=== PATIENT | female | born 1960 | race Two or more races ===

== ENCOUNTER 2020-04-07 13:43 | Inpatient (IN) ==
[2020-04-07] MEDS ORDERED: NS 1000 ML 1,000 ML ONE ×2 (14:02→16:18)
[2020-04-07 14:11] LABS: ABG BASE EXCESS -0.5 mmol/L (-2.0-2.0); ABG HCO3 22.9 mmol/L (22-26)
[2020-04-07 14:12] LABS: ABG ALLEN TEST POS
--- NOTE | 2020-04-07 14:25 | DR.FEVERAD ---
HPI Time seen Time Seen by Provider: 04/07/20 14:02 COVID-19 Has patient experienced Coronavirus symptoms: Yes Coronavirus symptoms experienced: Fever and Shortness of Breath Nurses notes reviewed Nurses Notes Review: Yes Source History Provided: Patient and Significant Other Mode of Arrival Mode of Arrival: Ambulatory Timing Came on: Suddenly Duration How lon Duration: Days Severity Fever Severity/Quality: subjective Context Recent: denies Treated Infection, Antibiotic and Contact exposure to Symptoms: Fever, Chills, Cough, SOB, Nasal symptoms and Sore throat; denies Dysuria, Frequency and Urgency History of: None Modifying factors Modifying factors: Nothing Associated signs and symptoms Associated signs and symptoms: Weakness and Myalgia; denies Lethargy, Abdominal pain, Nausea and Vomiting PMH PMH Past Medical History: No Past Surgical History: No Family History History of Family Medical Conditions: No Social History Does patient currently use any type of tobacco product: No Have you used tobacco products in the last 12 months: No Alcohol Use: None Do you use any recreational Drugs:: No Lives With: Spouse Travel Risk Has patient experienced Coronavirus symptoms: Yes Coronavirus symptoms experienced: Fever and Shortness of Breath ROS Review of Systems Constitutional: Chills, Fever, Malaise, Weakness, Fatigue and Loss of Appetite Eyes: No Symptoms Reported ENTM: No Symptoms Reported Respiratoy: Non-Productive Cough and Short of Breath; negative Productive Cough and Hemoptysis Cardiovascular: No Symptoms Reported Gastrointestinal/Abdominal: No Symptoms Reported Genitourinary: No Symptoms Reported Neurological: No Symptoms Reported Musculoskeletal: No Symptoms Reported Integumentary: No Symptoms Reported Hematologic/Lymphatic: No Symptoms Reported Endocrine: No Symptoms Reported Psychiatric: No Symptoms Reported All Other Systems: Reviewed and Negative PE Vital Signs Vitals: Temperature 98.0 F Pulse Rate 66 Respiratory Rate 22 Blood Pressure 151/71 O2 Sat by Pulse Oximetry 98 General Limitations: No Limitations General Appearance: Alert and Other (generalized weakness, hpyoxic, Pulse ox 79% on RA, mild respiratory distress ) Head Head Exam: Normal Inspection Eyes Eye exam: Normal Appearance ENT ENT Exam: Normal Exam Neck Neck Exam: Normal Inspection Respiratory Respiratory Exam: Respiratory Distress; negative Accessory Muscle Use, Chest Wall Tenderness, Prolonged Expiratory Phase and Stridor Respiratory Exam: Bilateral: Rhonchi Cardiovascular Cardiovascular Exam: Regular Rate and Normal Rhythm Abdominal Exam Abdominal Exam: Normal Inspection, Normal Bowel Sounds and Soft Extremities Extremities Exam: Normal Inspection Back Back Exam: Normal Inspection Neurologic Neurological Exam: Alert and Oriented X3 Psychiatric Psychiatric Exam: Normal Affect and Normal Mood Skin Skin Exam: Warm, Dry, Intact and Normal Color MDM Differential Diagnosis Differential Diagnosis: Dehydration, Hypoxemia, Influenza, Pulmonary embolus, Pneumonia, UTI, Sepsis and Viral syndrome COURSE Treatment Treatment: 60 yo f w/ no pmh presents w/ febrile illness x 4 days. Pulse ox 79% on ra on arrival, mild RD. placed on supplemental o2 w/ improvement to 90's. ABG with significant hypoxia c/w hypoxemic respiratory failure. EKG w/ evidence of multifocal pna. Covid 19 swab +. Lymphopenia on cbc. Mild francesco. Elevated ldh. 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 ROR Labs Reviewed Laboratory Results Reviewed?: Yes Result Diagrams: 04/07/20 14:10 04/07/20 14:10 Laboratory: WBC 6.9 X10^3/uL (3.6-10.0) 04/07/20 14:10 RBC 3.78 X10^6/uL (3.5-5.4) 04/07/20 14:10 Hgb 10.9 g/dL (12.0-16.0) L 04/07/20 14:10 Hct 31.6 % (36.0-47.0) L 04/07/20 14:10 MCV 83.5 fL (80.0-100.0) 04/07/20 14:10 MCH 28.9 pg (27.0-34.0) 04/07/20 14:10 MCHC 34.6 g/dL (33.0-35.0) 04/07/20 14:10 RDW 14.6 % (11.6-16.5) 04/07/20 14:10 Plt Count 283 X10^3/uL (150.0-450.0) 04/07/20 14:10 MPV 8.4 fL (7.4-11.0) 04/07/20 14:10 Neut % (Auto) 79.1 % (42.0-75.0) H 04/07/20 14:10 Lymph % (Auto) 16.0 % (21.0-51.0) L 04/07/20 14:10 [place] % (Auto) 4.0 % (0.0-13.0) 04/07/20 14:10 Eos % (Auto) 0.6 % (0.9-2.9) L 04/07/20 14:10 Baso % (Auto) 0.3 % (0.2-1.0) 04/07/20 14:10 Neut # (Auto) 5.4 x10^3/uL (2.2-4.8) H 04/07/20 14:10 Lymph # (Auto) 1.1 X10^3/uL (1.3-2.9) L 04/07/20 14:10 [place] # (Auto) 0.3 x10^3/uL (0.3-0.8) 04/07/20 14:10 Eos # (Auto) 0.0 x10^3/uL (0.0-0.2) 04/07/20 14:10 Baso # (Auto) 0.0 X10^3/uL (0.0-0.1) 04/07/20 14:10 Absolute Nucleated RBC 0.1 /100WBC 04/07/20 14:10 Sample Site Rrad 04/07/20 14:02 ABG pH 7.450 (7.35-7.45) 04/07/20 14:02 ABG pCO2 33.0 mmHg (35.0-45.0) L 04/07/20 14:02 ABG pO2 48.0 mmHg (80.0-100.0) L* 04/07/20 14:02 ABG HCO3 22.9 mmol/L (22-26) 04/07/20 14:02 ABG O2 Saturation 85.0 % (90-100) L 04/07/20 14:02 ABG Base Excess -0.5 mmol/L (-2.0-2.0) 04/07/20 14:02 Riccardo Test Pos 04/07/20 14:02 A-a Gradient 60.0 mmHg 04/07/20 14:02 FiO2 21.0 04/07/20 14:02 Blood Gas Comments Pt liz well elj 04/07/20 14:02 Sodium 136 mmol/L (136-145) 04/07/20 14:10 Corrected Sodium TNP 04/07/20 14:10 Potassium 4.6 mmol/L (3.5-5.1) 04/07/20 14:10 Chloride 103 mmol/L (98-107) 04/07/20 14:10 Carbon Dioxide 24.7 mmol/L (21-32) 04/07/20 14:10 BUN 29 mg/dL (7-18) H 04/07/20 14:10 Creatinine 1.37 mg/dL (0.55-1.02) H 04/07/20 14:10 Est GFR (MDRD) Af Amer 50 (>60) L 04/07/20 14:10 Est GFR (MDRD) Non-Af 42 (>60) L 04/07/20 14:10 Glucose 75 mg/dL (65-99) 04/07/20 14:10 Lactic Acid 0.8 mmol/L (0.4-2.0) 04/07/20 14:10 Calcium 7.8 mg/dL (8.5-10.1) L 04/07/20 14:10 Corrected Calcium 8.7 mg/dL (8.5-10.1) 04/07/20 14:10 Total Bilirubin 0.30 mg/dL (0.2-1.0) 04/07/20 14:10 AST 127 Units/L (15-37) H 04/07/20 14:10 ALT 69 Units/L (12-78) 04/07/20 14:10 Alkaline Phosphatase 170 Units/L (46-116) H 04/07/20 14:10 Lactate Dehydrogenase 662 Units/L (81-234) H 04/07/20 14:10 Troponin I < 0.02 ng/mL (0-1.5) 04/07/20 14:10 Total Protein 7.2 g/dL (6.4-8.2) 04/07/20 14:10 Albumin 2.9 g/dL (3.4-5.0) L 04/07/20 14:10 Globulin 4.3 g/dL (2.5-4.5) 04/07/20 14:10 Albumin/Globulin Ratio 0.7 Ratio (1.1-2.1) L 04/07/20 14:10 HCG, Qual Negative <10 mIU/mL 04/07/20 14:10 SARS-CoV-2 (PCR) Positive (NEGATIVE) A 05/23/20 14:14 Miscellaneous Test Cancelled 04/07/20 14:14 XRAY XRAY Interpreted by: Radiologist X-ray Results: cxr w/ multifocal infiltrates EKG Rate: 66 [place]: Normal Rhythm: NSR Block: None Hypertrophy: None ST: Normal Opioid Opioid Risk Tool Total: 0 Total Score Risk Category: Low Risk Copyright: [facility] predicting aberrant behaviors Diagnosis Discharge Problem: COVID-19, Acute hypoxemic respiratory failure due to COVID-19, FRANCESCO (acute kidney injury) Instructions Forms: Excuse From Work Patient Portal Social Distancing
[2020-04-07 14:27] VITALS: BMI 22.9
[2020-04-07] MEDS: NS 1000 ML 1,000 ML IV SCH ×2 (14:29→16:23)
[2020-04-07 14:31] LABS: BASOPHILS % (AUTO) 0.3 % (0.2-1.0); EOSINOPHILS % (AUTO) 0.6 % (0.9-2.9); HEMATOCRIT 31.6 % (36.0-47.0); HEMOGLOBIN 10.9 g/dL (12.0-16.0); LYMPHOCYTES # (AUTO) 1.1 X10^3/uL (1.3-2.9); MEAN CORPUSCULAR HEMOGLOBIN 28.9 pg (27.0-34.0); MEAN CORPUSCULAR HGB CONC 34.6 g/dL (33.0-35.0); MEAN CORPUSCULAR VOLUME 83.5 fL (80.0-100.0); MEAN PLATELET VOLUME 8.4 fL (7.4-11.0); MONOCYTES # (AUTO) 0.3 x10^3/uL (0.3-0.8); NEUTROPHILS # (AUTO) 5.4 x10^3/uL (2.2-4.8); NEUTROPHILS % (AUTO) 79.1 % (42.0-75.0); PLATELET COUNT 283 X10^3/uL (150.0-450.0); RED BLOOD COUNT 3.78 X10^6/uL (3.5-5.4); RED CELL DISTRIBUTION WIDTH 14.6 % (11.6-16.5); WHITE BLOOD COUNT 6.9 X10^3/uL (3.6-10.0)
--- NOTE | 2020-04-07 14:42 | RAD ---
HISTORYShortness of breath, fever, nausea, vomiting, diarrhea.STUDYCHEST, 1 VIEWCOMPARISONNone.FINDINGSThe trachea is midline. The cardiac silhouette is unremarkable. There is patchy airspace opacity in both lungs, mostly in the perihilar regions bilaterally. There is no evidence of consolidation, significant effusion or pneumothorax. The bony thorax is unremarkable.IMPRESSION1. Patchy airspace opacities in both lungs as described, mostly in a perihilar distribution. Clinical correlation for multifocal pneumonia is recommended.Electronically signed by: AMIRA ALCALA (April 07, 2020 14:40:15)
[2020-04-07 14:44] LABS: SERUM PREGNANCY TEST, QUAL NEGATIVE <10 mIU/mL
[2020-04-07 14:50] LABS: LACTIC ACID 0.8 mmol/L (0.4-2.0)
[2020-04-07 14:51] LABS: ALANINE AMINOTRANSFERASE 69 Units/L (12-78); ALBUMIN 2.9 g/dL (3.4-5.0); ALKALINE PHOSPHATASE 170 Units/L (46-116); ASPARTATE AMINO TRANSFERASE 127 Units/L (15-37); BLOOD UREA NITROGEN 29 mg/dL (7-18); CALCIUM 7.8 mg/dL (8.5-10.1); CARBON DIOXIDE 24.7 mmol/L (21-32); CHLORIDE 103 mmol/L (98-107); COR CA(FOR HYPOALB) 8.7 mg/dL (8.5-10.1); CREATININE 1.37 mg/dL (0.55-1.02); LACTATE DEHYDROGENASE 662 Units/L (81-234); SODIUM 136 mmol/L (136-145); TOTAL PROTEIN 7.2 g/dL (6.4-8.2); TROPONIN I < 0.02 ng/mL (0-1.5); eGFR NON BLACK RACES 42 (>60)
[2020-04-07] MEDS ORDERED: ROCEPHIN VIAL 1 GRAM 1 G in NS 100 ML IV + SPIKE MINIBAG* 100 ML IV ONE (15:54)
[2020-04-07] MEDS ORDERED: NS 250 ML IV 250 ML IV ONE (16:13)
[2020-04-07] MEDS ORDERED: ZITHROMAX INJ 500 MG VIAL IV ONE (16:13)
[2020-04-07 16:17] LABS: BILIRUBIN,URINE NEGATIVE (NEGATIVE); BLOOD/HEMOGLOBIN,URINE 1+ (NEGATIVE); GLUCOSE, URINE NEGATIVE (NEGATIVE); KETONES,URINE NEGATIVE (NEGATIVE); LEUKOCYTE ESTERASE ,URINE 1+ (NEGATIVE); NITRITES,URINE NEGATIVE (NEGATIVE); PROTEIN,URINE 2+ (NEGATIVE); UROBILINOGEN,URINE NORMAL (NORMAL)
[2020-04-07] MEDS: ZITHROMAX INJ 500 MG VIAL 500 MG in NS 250 ML IV 250 ML IV SCH (16:22)
[2020-04-07 16:25] LABS: APPEARANCE,URINE CLEAR (CLEAR); BACTERIA,URINE NEGATIVE /HPF (NEGATIVE); COLOR,URINE YELLOW (YELLOW); RBC,URINE 0-2 /HPF (0-3); SQUAMOUS EPITHELIAL CELL,UR RARE /HPF (NEGATIVE)
[2020-04-07] MEDS: SOLU-Medrol 125 MG VIAL IVP SCH (22:48)
[2020-04-08] MEDS: SOLU-Medrol 125 MG VIAL IVP SCH ×3 (05:49→22:03)
[2020-04-08 06:00] LABS: ABG BASE EXCESS -1.1 mmol/L (-2.0-2.0); ABG HCO3 22.4 mmol/L (22-26)
[2020-04-08 06:09] LABS: BASOPHILS % (AUTO) 0.4 % (0.2-1.0); EOSINOPHILS # (AUTO) 0.1 x10^3/uL (0.0-0.2); EOSINOPHILS % (AUTO) 0.9 % (0.9-2.9); HEMATOCRIT 30.3 % (36.0-47.0); HEMOGLOBIN 10.5 g/dL (12.0-16.0); LYMPHOCYTES # (AUTO) 0.9 X10^3/uL (1.3-2.9); LYMPHOCYTES % (AUTO) 10.4 % (21.0-51.0); MEAN CORPUSCULAR HEMOGLOBIN 29.1 pg (27.0-34.0); MEAN CORPUSCULAR HGB CONC 34.7 g/dL (33.0-35.0); MEAN CORPUSCULAR VOLUME 83.7 fL (80.0-100.0); MEAN PLATELET VOLUME 8.2 fL (7.4-11.0); MONOCYTES # (AUTO) 0.3 x10^3/uL (0.3-0.8); MONOCYTES % (AUTO) 3.1 % (0.0-13.0); NEUTROPHILS # (AUTO) 7.1 x10^3/uL (2.2-4.8); NEUTROPHILS % (AUTO) 85.2 % (42.0-75.0); PLATELET COUNT 313 X10^3/uL (150.0-450.0); RED BLOOD COUNT 3.62 X10^6/uL (3.5-5.4); RED CELL DISTRIBUTION WIDTH 14.2 % (11.6-16.5); WHITE BLOOD COUNT 8.3 X10^3/uL (3.6-10.0)
[2020-04-08 06:22] LABS: ALANINE AMINOTRANSFERASE 59 Units/L (12-78); ALBUMIN 2.3 g/dL (3.4-5.0); ALKALINE PHOSPHATASE 155 Units/L (46-116); ASPARTATE AMINO TRANSFERASE 109 Units/L (15-37); BLOOD UREA NITROGEN 17 mg/dL (7-18); CALCIUM 7.4 mg/dL (8.5-10.1); CARBON DIOXIDE 22.3 mmol/L (21-32); CHLORIDE 107 mmol/L (98-107); COR CA(FOR HYPOALB) 8.8 mg/dL (8.5-10.1); CREATININE 1.04 mg/dL (0.55-1.02); SODIUM 140 mmol/L (136-145); TOTAL PROTEIN 6.5 g/dL (6.4-8.2); eGFR NON BLACK RACES 57 (>60)
--- NOTE | 2020-04-08 06:32 | RAD ---
HISTORYpneumoniaSTUDYCHEST, 1 VIEWCOMPARISONMay 2019TECHNIQUEPortable chest x-rayFINDINGSProgressive multifocal bilateral alveolar consolidation and intervening ground-glass attenuation of the lung parenchyma is observed. The heart size remains stable and the pleural spaces remain clear. There is no free air or pneumothorax identified.IMPRESSIONProgressive airspace opacification associated with multifocal bronchopneumonia pattern, which may be due to viral or atypical organism.Electronically signed by: CAMERON DEGROOT (April 08, 2020 06:30:52)
[2020-04-08] MEDS ORDERED: LOVENOX INJ 30 MG SYR SC SCH (09:00)
[2020-04-08] MEDS ORDERED: LOVENOX INJ 40 MG SYR SC SCH (09:00)
--- NOTE | 2020-04-08 11:21 | DR.H&P ---
H&P History & Physical for Day of: H&P Date: 04/08/20 Chief Complaint Chief Complaint: Shortness of breath Allergies Allergies Allergy/AdvReac Type Severity Reaction Status Date / Time No Known Drug Allergies Allergy Verified 04/07/20 14:00 History of Present Illness History of Present Illness: Pt is a 60 yo f w/ no pmhx admitted for COVID-19 pneumonia and Acute respiratory failure. She reports symptoms that started 4-5 days prior to admission, w/ fever, chills, headache, cough, wheezing, shortness of breath, nausea, and abdominal pain. In ED, her pulse ox 79% on room air and pt in moderate respiratory distress. She was placed on supplemental o2 w/ improvement to 90's. ABG with significant hypoxia c/w hypoxemic respiratory failure. CXR w/ evidence of multifocal pneumonia. Covid-19 positive on 04/07/20. Labs/imaging this morning: Wbc 8.3, Hgb 10.5, Plt 313, Na 140, K 4.2, HCO3 22.3, Cr 1.37>1.04, Gluc 108, CRP 82. AB.4/33/52/22.4/88% on 6L nc FiO2 44% CXR: Progressive airspace opacification associated with multifocal bronchopneumonia pattern, which may be due to viral or atypical organism. Will change patient to high flow w/ FiO2 80%, repeat ABG in 2 hours. Discussed w/ pt and possibility of intubation and mechanical ventilation if necessary with patient and risk, benefits involved. Pt verbalized understanding and desires interventio n if necessary. Continue IV Solumedrol q8h, Albuterol inh prn. Continue to closely monitor patient and follow up labs. Social History Does patient currently use any type of tobacco product: No Have you used tobacco products in the last 12 months: No Does any household member use tobacco: No Alcohol Use: None Drug Use: None Medications Home Medications: No Known Drug Allergies Allergy (Verified 04/07/20 14:00) CONTINUE taking the following medications NK 04/07/20 [History] Labs Result Diagrams: 04/08/20 05:01 04/08/20 05:01 Labs: Laboratory WBC 8.3 X10^3/uL (3.6-10.0) 04/08/20 05:01 RBC 3.62 X10^6/uL (3.5-5.4) 04/08/20 05:01 Hgb 10.5 g/dL (12.0-16.0) L 04/08/20 05:01 Hct 30.3 % (36.0-47.0) L 04/08/20 05:01 MCV 83.7 fL (80.0-100.0) 04/08/20 05:01 MCH 29.1 pg (27.0-34.0) 04/08/20 05:01 MCHC 34.7 g/dL (33.0-35.0) 04/08/20 05:01 RDW 14.2 % (11.6-16.5) 04/08/20 05:01 Plt Count 313 X10^3/uL (150.0-450.0) 04/08/20 05:01 MPV 8.2 fL (7.4-11.0) 04/08/20 05:01 Neut % (Auto) 85.2 % (42.0-75.0) H 04/08/20 05:01 Lymph % (Auto) 10.4 % (21.0-51.0) L 04/08/20 05:01 [place] % (Auto) 3.1 % (0.0-13.0) 04/08/20 05:01 Eos % (Auto) 0.9 % (0.9-2.9) 04/08/20 05:01 Baso % (Auto) 0.4 % (0.2-1.0) 04/08/20 05:01 Neut # (Auto) 7.1 x10^3/uL (2.2-4.8) H 04/08/20 05:01 Lymph # (Auto) 0.9 X10^3/uL (1.3-2.9) L 04/08/20 05:01 [place] # (Auto) 0.3 x10^3/uL (0.3-0.8) 04/08/20 05:01 Eos # (Auto) 0.1 x10^3/uL (0.0-0.2) 04/08/20 05:01 Baso # (Auto) 0.0 X10^3/uL (0.0-0.1) 04/08/20 05:01 Absolute Nucleated RBC 0.2 /100WBC 04/08/20 05:01 Sample Site Rbra 04/08/20 05:55 ABG pH 7.440 (7.35-7.45) 04/08/20 05:55 ABG pCO2 33.0 mmHg (35.0-45.0) L 04/08/20 05:55 ABG pO2 52.0 mmHg (80.0-100.0) L 04/08/20 05:55 ABG HCO3 22.4 mmol/L (22-26) 04/08/20 05:55 ABG O2 Saturation 88.0 % (90-100) L 04/08/20 05:55 ABG Base Excess -1.1 mmol/L (-2.0-2.0) 04/08/20 05:55 Riccardo Test Na 04/08/20 05:55 A-a Gradient 220.0 mmHg 04/08/20 05:55 FiO2 44.0 04/08/20 05:55 Blood Gas Comments Amy abg well 04/08/20 05:55 Sodium 140 mmol/L (136-145) 04/08/20 05:01 Corrected Sodium TNP 04/08/20 05:01 Potassium 4.2 mmol/L (3.5-5.1) 04/08/20 05:01 Chloride 107 mmol/L (98-107) 04/08/20 05:01 Carbon Dioxide 22.3 mmol/L (21-32) 04/08/20 05:01 BUN 17 mg/dL (7-18) 04/08/20 05:01 Creatinine 1.04 mg/dL (0.55-1.02) H 04/08/20 05:01 Est GFR (MDRD) Af Amer > 60 (>60) 04/08/20 05:01 Est GFR (MDRD) Non-Af 57 (>60) L 04/08/20 05:01 Glucose 108 mg/dL (65-99) H 04/08/20 05:01 Lactic Acid 0.8 mmol/L (0.4-2.0) 04/07/20 14:10 Calcium 7.4 mg/dL (8.5-10.1) L 04/08/20 05:01 Corrected Calcium 8.8 mg/dL (8.5-10.1) 04/08/20 05:01 Total Bilirubin 0.20 mg/dL (0.2-1.0) 04/08/20 05:01 AST 109 Units/L (15-37) H 04/08/20 05:01 ALT 59 Units/L (12-78) 04/08/20 05:01 Alkaline Phosphatase 155 Units/L (46-116) H 04/08/20 05:01 Lactate Dehydrogenase 662 Units/L (81-234) H 04/07/20 14:10 Troponin I < 0.02 ng/mL (0-1.5) 04/07/20 14:10 C-Reactive Protein 82.10 mg/L (0-3.0) H 04/07/20 14:10 Total Protein 6.5 g/dL (6.4-8.2) 04/08/20 05:01 Albumin 2.3 g/dL (3.4-5.0) L 04/08/20 05:01 Globulin 4.2 g/dL (2.5-4.5) 04/08/20 05:01 Albumin/Globulin Ratio 0.5 Ratio (1.1-2.1) L 04/08/20 05:01 HCG, Qual Negative <10 mIU/mL 04/07/20 14:10 Specimen Type Catherized urine 04/07/20 16:00 Urine Color Yellow (YELLOW) 04/07/20 16:00 Urine Appearance Clear (CLEAR) 04/07/20 16:00 Urine pH 6.0 (5.0 - 8.0) 04/07/20 16:00 Ur Specific [place] 1.010 (1.000-1.030) 04/07/20 16:00 Urine Protein 2+ (NEGATIVE) 04/07/20 16:00 Urine Glucose (UA) Negative (NEGATIVE) 04/07/20 16:00 Urine Ketones Negative (NEGATIVE) 04/07/20 16:00 Urine Occult Blood 1+ (NEGATIVE) 04/07/20 16:00 Urine Nitrite Negative (NEGATIVE) 04/07/20 16:00 Urine Bilirubin Negative (NEGATIVE) 04/07/20 16:00 Urine Urobilinogen Normal (NORMAL) 04/07/20 16:00 Ur Leukocyte Esterase 1+ (NEGATIVE) 04/07/20 16:00 Urine RBC 0-2 /HPF (0-3) 04/07/20 16:00 Urine WBC 3-5 /HPF (0-5) 04/07/20 16:00 Ur Squamous Epith Cells Rare /HPF (NEGATIVE) 04/07/20 16:00 Urine Bacteria Negative /HPF (NEGATIVE) 04/07/20 16:00 Ur Culture Indicated? No/not indicated 04/07/20 16:00 SARS-CoV-2 (PCR) Positive (NEGATIVE) A 04/07/20 14:14 Miscellaneous Test Cancelled 04/07/20 14:14 Review of Systems Constitutional: Fever, Chills and Weakness Eyes: No Symptoms Reported ENT: No Symptoms Reported Respiratory: Cough, Shortness of Breath, Pleuritic Pain and Wheezing Cardiovascular: No Symptoms Reported Gastrointestinal: Nausea and Abdominal Pain Genitourinary: No Symptoms Reported Musculoskeletal: No Symptoms Reported Skin: No Symptoms Reported Neurological: No Symptoms Reported Physical Exam Vital Signs: Temperature 99.4 F Pulse Rate [Right Brachial] 77 Pulse Rate 71 Respiratory Rate 23 Blood Pressure [Right Arm] 160/65 Blood Pressure 152/69 O2 Sat by Pulse Oximetry 90 Oriented: Normal Eyes: Normal Ear: Normal Nose: Normal Throat: Normal Respiratory: Diminished Throughout, Rhonchi Throughout and Wheezes Throughout Cardiovascular: Normal : Normal Auscultation: Bowel Sounds: Normal Palpation: Normal Tenderness: Normal Skin: Normal Musculoskeletal: Normal Mood Description: Calm Speech Pattern: Clear Assessment/Plan (1) Acute hypoxemic respiratory failure due to COVID-19: Status: Acute Plan: IV solumedrol, Bronchodilators, Supplemental O2 (2) COVID-19: Status: Acute (3) FRANCESCO (acute kidney injury): Status: Acute Review H&P Reviewed: Yes Patient was examined?: Yes
[2020-04-08 12:12] LABS: ABG ALLEN TEST POS; ABG BASE EXCESS -5.2 mmol/L (-2.0-2.0); ABG HCO3 18.8 mmol/L (22-26)
[2020-04-08] MEDS: ZITHROMAX INJ 500 MG VIAL 500 MG in NS 250 ML IV 250 ML IV SCH (15:58)
[2020-04-09] MEDS ORDERED: TYLENOL 325 MG TAB PO ONE (01:39)
[2020-04-09] MEDS: TYLENOL 325 MG TAB PO PRN ×3 (02:46→21:00)
[2020-04-09 04:44] LABS: ABG BASE EXCESS -7.7 mmol/L (-2.0-2.0)
[2020-04-09 04:45] LABS: ABG ALLEN TEST POS
[2020-04-09 05:23] LABS: BASOPHILS % (AUTO) 0.1 % (0.2-1.0); HEMATOCRIT 28.4 % (36.0-47.0); HEMOGLOBIN 9.7 g/dL (12.0-16.0); LYMPHOCYTES # (AUTO) 0.8 X10^3/uL (1.3-2.9); LYMPHOCYTES % (AUTO) 8.5 % (21.0-51.0); MEAN CORPUSCULAR HEMOGLOBIN 29.1 pg (27.0-34.0); MEAN CORPUSCULAR VOLUME 85.6 fL (80.0-100.0); MEAN PLATELET VOLUME 8.4 fL (7.4-11.0); MONOCYTES # (AUTO) 0.4 x10^3/uL (0.3-0.8); NEUTROPHILS # (AUTO) 8.1 x10^3/uL (2.2-4.8); NEUTROPHILS % (AUTO) 87.4 % (42.0-75.0); PLATELET COUNT 378 X10^3/uL (150.0-450.0); RED BLOOD COUNT 3.32 X10^6/uL (3.5-5.4); RED CELL DISTRIBUTION WIDTH 14.7 % (11.6-16.5); WHITE BLOOD COUNT 9.2 X10^3/uL (3.6-10.0)
[2020-04-09 05:38] LABS: ALBUMIN 2.2 g/dL (3.4-5.0); CALCIUM 7.6 mg/dL (8.5-10.1); CARBON DIOXIDE 16.5 mmol/L (21-32); CREATININE 1.36 mg/dL (0.55-1.02); TOTAL PROTEIN 6.5 g/dL (6.4-8.2)
[2020-04-09] MEDS: SOLU-Medrol 125 MG VIAL IVP SCH ×3 (06:09→21:02)
[2020-04-09] MEDS ORDERED: HumuLIN R SUBCUT PRN (06:37)
[2020-04-09] MEDS ORDERED: HumuLIN R ONE (06:50)
--- NOTE | 2020-04-09 07:43 | RAD ---
HISTORYFollow-up pneumoniaSTUDYCHEST, 1 [id number]/24/2020FINDINGSThe heart is within normal limits in size. The radha are normal. Multifocal bilateral alveolar infiltrates most consistent with pneumonia are unchanged. No pleural effusions are identified. Bony thorax is unremarkable.IMPRESSIONNo change bilateral multifocal alveolar pneumoniaElectronically signed by: STEFFANY PAYTON (April 09, 2020 07:42:42)
[2020-04-09] MEDS ORDERED: ZITHROMAX INJ 500 MG VIAL 500 MG in D5W 250 ML IV 250 ML IV SCH (09:00)
[2020-04-09] MEDS: LOVENOX INJ 40 MG SYR SC SCH (09:10)
[2020-04-09] MEDS: VITAMIN C PO SCH (09:23)
[2020-04-09] MEDS: ZOFRAN INJ 4 MG VIAL IVP PRN (09:25)
--- NOTE | 2020-04-09 11:55 | PCM.PROG ---
Progress Note Progress Note for Day of Date of Exam: 04/09/20 Subjective Subjective: Pt is a 60 yo f w/ no pmhx admitted for COVID-19 pneumonia and Acute respiratory failure. She is reporting no improvement in her breathing. Covid-19 positive on 04/07/20. Labs/imaging: Wbc 9.2, Hgb 9.7, Plt 378, Na 133, K 4.3, HCO3 16.5, Cr 1.36, Gluc 413, AB.38/27/136/16/99% on heated HiFlo FiO2 80%. CXR:no change in prior. Pt having hyperglycemia likely d/t steroids, will start SSI, increase IVF rate. Will decrease FiO2 to 60% based on ABG. Continue IV Solumedrol q8h, Albuterol inh prn, Vitamin C, Azithromycin. Continue to closely monitor patient and follow up labs/imaging in the morning. Past Medical Family Social History Past Med/Fam/Surg Hx: No changes since H&P Allergies: Allergies No Known Drug Allergies Allergy (Verified 04/07/20 14:00) Review of Systems ROS: No change since H&P Vital Signs and I&O's Vital Signs: Temperature 98.8 F Pulse Rate [Right Brachial] 67 Pulse Rate 92 Respiratory Rate 20 Blood Pressure [Right Arm] 145/64 Blood Pressure 152/69 O2 Sat by Pulse Oximetry 94 Intake and Output: Intake & Output 04/06/20 04/07/20 04/08/20 04/09/20 23:59 23:59 23:59 23:59 Intake Total 240 / 240 1386 / 1386 360 / 360 Output Total 1200 / 1200 1225 / 1225 325 / 325 Balance -960 / -960 161 / 161 35 / 35 Physical Exam Oriented: Normal Eyes: Normal Ear: Normal Nose: Normal Throat: Normal Respiratory: Diminished and Wheezes Cardiovascular: Normal : Normal Auscultation: Bowel Sounds: Normal Tenderness: Normal Skin: Normal Musculoskeletal: Normal Mood Description: Calm Speech Pattern: Clear Laboratory and Diagnostics Result Diagrams: 04/09/20 04:59 04/09/20 04:59 Labs: Laboratory WBC 9.2 X10^3/uL (3.6-10.0) 04/09/20 04:59 RBC 3.32 X10^6/uL (3.5-5.4) L 04/09/20 04:59 Hgb 9.7 g/dL (12.0-16.0) L 04/09/20 04:59 Hct 28.4 % (36.0-47.0) L 04/09/20 04:59 MCV 85.6 fL (80.0-100.0) 04/09/20 04:59 MCH 29.1 pg (27.0-34.0) 04/09/20 04:59 MCHC 34.0 g/dL (33.0-35.0) 04/09/20 04:59 RDW 14.7 % (11.6-16.5) 04/09/20 04:59 Plt Count 378 X10^3/uL (150.0-450.0) 04/09/20 04:59 MPV 8.4 fL (7.4-11.0) 04/09/20 04:59 Neut % (Auto) 87.4 % (42.0-75.0) H 04/09/20 04:59 Lymph % (Auto) 8.5 % (21.0-51.0) L 04/09/20 04:59 [place] % (Auto) 4.0 % (0.0-13.0) 04/09/20 04:59 Eos % (Auto) 0.0 % (0.9-2.9) L 04/09/20 04:59 Baso % (Auto) 0.1 % (0.2-1.0) L 04/09/20 04:59 Neut # (Auto) 8.1 x10^3/uL (2.2-4.8) H 04/09/20 04:59 Lymph # (Auto) 0.8 X10^3/uL (1.3-2.9) L 04/09/20 04:59 [place] # (Auto) 0.4 x10^3/uL (0.3-0.8) 04/09/20 04:59 Eos # (Auto) 0.0 x10^3/uL (0.0-0.2) 04/09/20 04:59 Baso # (Auto) 0.0 X10^3/uL (0.0-0.1) 04/09/20 04:59 Absolute Nucleated RBC 0.1 /100WBC 04/09/20 04:59 Sample Site Lr 04/09/20 04:35 ABG pH 7.380 (7.35-7.45) 04/09/20 04:35 ABG pCO2 27.0 mmHg (35.0-45.0) L 04/09/20 04:35 ABG pO2 136.0 mmHg (80.0-100.0) H 04/09/20 04:35 ABG HCO3 16.0 mmol/L (22-26) L* 04/09/20 04:35 ABG O2 Saturation 99.0 % (90-100) 04/09/20 04:35 ABG Base Excess -7.7 mmol/L (-2.0-2.0) L 04/09/20 04:35 Riccardo Test Pos 04/09/20 04:35 A-a Gradient 401.0 mmHg 04/09/20 04:35 FiO2 80.0 04/09/20 04:35 Blood Gas Comments Amy well ae 04/09/20 04:35 Sodium 133 mmol/L (136-145) L 04/09/20 04:59 Corrected Sodium 141 mmol/L (136-145) 04/09/20 04:59 Potassium 4.3 mmol/L (3.5-5.1) 04/09/20 04:59 Chloride 101 mmol/L (98-107) 04/09/20 04:59 Carbon Dioxide 16.5 mmol/L (21-32) L 04/09/20 04:59 BUN 32 mg/dL (7-18) H 04/09/20 04:59 Creatinine 1.36 mg/dL (0.55-1.02) H 04/09/20 04:59 Est GFR (MDRD) Af Amer 51 (>60) L 04/09/20 04:59 Est GFR (MDRD) Non-Af 42 (>60) L 04/09/20 04:59 Glucose 413 mg/dL (65-99) H 04/09/20 04:59 Lactic Acid 0.8 mmol/L (0.4-2.0) 04/07/20 14:10 Calcium 7.6 mg/dL (8.5-10.1) L 04/09/20 04:59 Corrected Calcium 9.0 mg/dL (8.5-10.1) 04/09/20 04:59 Total Bilirubin 0.30 mg/dL (0.2-1.0) 04/09/20 04:59 AST 96 Units/L (15-37) H 04/09/20 04:59 ALT 68 Units/L (12-78) 04/09/20 04:59 Alkaline Phosphatase 165 Units/L (46-116) H 04/09/20 04:59 Lactate Dehydrogenase 662 Units/L (81-234) H 04/07/20 14:10 Troponin I < 0.02 ng/mL (0-1.5) 04/07/20 14:10 C-Reactive Protein 82.10 mg/L (0-3.0) H 04/07/20 14:10 Total Protein 6.5 g/dL (6.4-8.2) 04/09/20 04:59 Albumin 2.2 g/dL (3.4-5.0) L 04/09/20 04:59 Globulin 4.3 g/dL (2.5-4.5) 04/09/20 04:59 Albumin/Globulin Ratio 0.5 Ratio (1.1-2.1) L 04/09/20 04:59 HCG, Qual Negative <10 mIU/mL 04/07/20 14:10 Specimen Type Catherized urine 04/07/20 16:00 Urine Color Yellow (YELLOW) 04/07/20 16:00 Urine Appearance Clear (CLEAR) 04/07/20 16:00 Urine pH 6.0 (5.0 - 8.0) 04/07/20 16:00 Ur Specific [place] 1.010 (1.000-1.030) 04/07/20 16:00 Urine Protein 2+ (NEGATIVE) 04/07/20 16:00 Urine Glucose (UA) Negative (NEGATIVE) 04/07/20 16:00 Urine Ketones Negative (NEGATIVE) 04/07/20 16:00 Urine Occult Blood 1+ (NEGATIVE) 04/07/20 16:00 Urine Nitrite Negative (NEGATIVE) 04/07/20 16:00 Urine Bilirubin Negative (NEGATIVE) 04/07/20 16:00 Urine Urobilinogen Normal (NORMAL) 04/07/20 16:00 Ur Leukocyte Esterase 1+ (NEGATIVE) 04/07/20 16:00 Urine RBC 0-2 /HPF (0-3) 04/07/20 16:00 Urine WBC 3-5 /HPF (0-5) 04/07/20 16:00 Ur Squamous Epith Cells Rare /HPF (NEGATIVE) 04/07/20 16:00 Urine Bacteria Negative /HPF (NEGATIVE) 04/07/20 16:00 Ur Culture Indicated? No/not indicated 04/07/20 16:00 SARS-CoV-2 (PCR) Positive (NEGATIVE) A 04/07/20 14:14 Miscellaneous Test Cancelled 04/07/20 14:14 Plan (1) Acute hypoxemic respiratory failure due to COVID-19: Status: Acute Plan: IV solumedrol, Bronchodilators, Supplemental O2 (2) COVID-19: Status: Acute (3) FRANCESCO (acute kidney injury): Status: Acute
[2020-04-09] MEDS: HumuLIN R SUBCUT PRN ×3 (12:48→21:12)
[2020-04-09] MEDS: NS 1000 ML 1,000 ML IV SCH (18:29)
[2020-04-09] MEDS: SNACK - Diabetic Appropriate PO SCH (19:41)
[2020-04-09] MEDS ORDERED: SNACK - Diabetic Appropriate PO SCH (20:00)
[2020-04-10] MEDS: ZOFRAN INJ 4 MG VIAL IVP PRN (02:22)
[2020-04-10 05:28] LABS: BASOPHILS # (AUTO) 0.1 X10^3/uL (0.0-0.1); BASOPHILS % (AUTO) 0.4 % (0.2-1.0); HEMATOCRIT 27.8 % (36.0-47.0); HEMOGLOBIN 9.5 g/dL (12.0-16.0); LYMPHOCYTES # (AUTO) 0.7 X10^3/uL (1.3-2.9); MEAN CORPUSCULAR HEMOGLOBIN 28.8 pg (27.0-34.0); MEAN CORPUSCULAR HGB CONC 34.1 g/dL (33.0-35.0); MEAN CORPUSCULAR VOLUME 84.5 fL (80.0-100.0); MEAN PLATELET VOLUME 8.2 fL (7.4-11.0); MONOCYTES # (AUTO) 0.4 x10^3/uL (0.3-0.8); MONOCYTES % (AUTO) 2.4 % (0.0-13.0); NEUTROPHILS # (AUTO) 15.7 x10^3/uL (2.2-4.8); NEUTROPHILS % (AUTO) 93.2 % (42.0-75.0); PLATELET COUNT 426 X10^3/uL (150.0-450.0); RED BLOOD COUNT 3.29 X10^6/uL (3.5-5.4); RED CELL DISTRIBUTION WIDTH 14.3 % (11.6-16.5); WHITE BLOOD COUNT 16.8 X10^3/uL (3.6-10.0)
[2020-04-10 05:31] LABS: ABG ALLEN TEST POS; ABG BASE EXCESS -3.9 mmol/L (-2.0-2.0); ABG HCO3 18.8 mmol/L (22-26)
[2020-04-10 05:42] LABS: ALANINE AMINOTRANSFERASE 54 Units/L (12-78); ALBUMIN 2.4 g/dL (3.4-5.0); ALKALINE PHOSPHATASE 149 Units/L (46-116); ASPARTATE AMINO TRANSFERASE 56 Units/L (15-37); BLOOD UREA NITROGEN 28 mg/dL (7-18); CALCIUM 7.8 mg/dL (8.5-10.1); CARBON DIOXIDE 17.8 mmol/L (21-32); CHLORIDE 104 mmol/L (98-107); COR CA(FOR HYPOALB) 9.1 mg/dL (8.5-10.1); COR NA(FOR HYPERGLY) 141 mmol/L (136-145); CREATININE 1.17 mg/dL (0.55-1.02); SODIUM 135 mmol/L (136-145); TOTAL PROTEIN 6.5 g/dL (6.4-8.2); eGFR NON BLACK RACES 50 (>60)
[2020-04-10 05:54] LABS: BAND NEUTROPHILS % 6 % (0-10); PLATELET MORPHOLOGY COMMENT NORMAL (NORMAL)
--- NOTE | 2020-04-10 06:01 | RAD ---
HISTORYFollow-up COVID-19STUDYCHEST, 1 [id number]/25/2020FINDINGSThe heart is now mildly enlarged. Bilateral multifocal infiltrates are again identified not significantly different in degree or distribution when compared with the prior examination considering a difference in film technique. No pleural effusions are identified. The bony thorax is unremarkable.IMPRESSIONNo change bilateral multifocal infiltratesMinimal cardiomegalyElectronically signed by: STEFFANY PAYTON (April 10, 2020 05:59:18)
[2020-04-10] MEDS: SOLU-Medrol 125 MG VIAL IVP SCH ×3 (06:12→21:25)
[2020-04-10] MEDS: HumuLIN R SUBCUT PRN ×4 (06:13→21:25)
[2020-04-10] MEDS: MILK OF MAGNESIA PO PRN ×2 (09:00→22:30)
[2020-04-10] MEDS: LOVENOX INJ 40 MG SYR SC SCH (09:00)
[2020-04-10] MEDS: LEVAQUIN PREMIX IV 750 MG 750 MG/150 ML BAG IV SCH (09:00)
[2020-04-10] MEDS: VITAMIN C PO SCH (09:00)
[2020-04-10] MEDS: VENTOLIN or PROAIR HFA IN PRN ×2 (09:50→21:10)
--- NOTE | 2020-04-10 10:11 | PCM.PROG ---
Progress Note Progress Note for Day of Date of Exam: 04/10/20 Subjective Subjective: Pt is a 60 yo f w/ no pmhx admitted for COVID-19 pneumonia and Acute respiratory failure. She is reporting minimal improvement in her breathing. Covid-19 positive on 04/07/20. Labs/imaging: Wbc 16.8, Hgb 9.5, Plt 426, Na 135, K 4.1, HCO3 17.8, Cr 1.17, Gluc 337, AB.45/27/64/18/93% on heated HiFlo FiO2 65%. CXR:no change from prior. Continue IV Solumedrol q8h, IVF NS@75ml/h. Albuterol inh prn, Vitamin C, Abx Levaquin. Continue to monitor patient and follow up labs/imaging in the morning. Past Medical Family Social History Past Med/Fam/Surg Hx: No changes since H&P Allergies: Allergies No Known Drug Allergies Allergy (Verified 04/07/20 14:00) Review of Systems ROS: No change since H&P Vital Signs and I&O's Vital Signs: Temperature 97.8 F Pulse Rate [Right Brachial] 73 Pulse Rate 69 Respiratory Rate 30 Blood Pressure [Right Arm] 130/61 Blood Pressure 152/69 O2 Sat by Pulse Oximetry 92 Intake and Output: Intake & Output 04/07/20 04/08/20 04/09/20 04/10/20 23:59 23:59 23:59 23:59 Intake Total 240 / 240 1386 / 1386 3199 / 3199 660 / 660 Output Total 1200 / 1200 1225 / 1225 1425 / 1425 375 / 375 Balance -960 / -960 161 / 161 1774 / 1774 285 / 285 Physical Exam Oriented: Normal Eyes: Normal Ear: Normal Nose: Normal Throat: Normal Respiratory: Diminished and Wheezes Cardiovascular: Normal : Normal Auscultation: Bowel Sounds: Normal Tenderness: Normal Skin: Normal Musculoskeletal: Normal Mood Description: Calm Speech Pattern: Clear Laboratory and Diagnostics Result Diagrams: 04/10/20 05:10 04/10/20 05:10 Labs: 04/07/20 14:15 Blood Blood Culture - Preliminary 04/07/20 14:10 Blood Blood Culture - Preliminary Laboratory WBC 16.8 X10^3/uL (3.6-10.0) H 04/10/20 05:10 RBC 3.29 X10^6/uL (3.5-5.4) L 04/10/20 05:10 Hgb 9.5 g/dL (12.0-16.0) L 04/10/20 05:10 Hct 27.8 % (36.0-47.0) L 04/10/20 05:10 MCV 84.5 fL (80.0-100.0) 04/10/20 05:10 MCH 28.8 pg (27.0-34.0) 04/10/20 05:10 MCHC 34.1 g/dL (33.0-35.0) 04/10/20 05:10 RDW 14.3 % (11.6-16.5) 04/10/20 05:10 Plt Count 426 X10^3/uL (150.0-450.0) 04/10/20 05:10 Plt Count Comment Adequate (ADEQUATE) 04/10/20 05:10 MPV 8.2 fL (7.4-11.0) 04/10/20 05:10 Neut % (Auto) 93.2 % (42.0-75.0) H 04/10/20 05:10 Lymph % (Auto) 4.0 % (21.0-51.0) L 04/10/20 05:10 [place] % (Auto) 2.4 % (0.0-13.0) 04/10/20 05:10 Eos % (Auto) 0.0 % (0.9-2.9) L 04/10/20 05:10 Baso % (Auto) 0.4 % (0.2-1.0) 04/10/20 05:10 Neut # (Auto) 15.7 x10^3/uL (2.2-4.8) H 04/10/20 05:10 Lymph # (Auto) 0.7 X10^3/uL (1.3-2.9) L 04/10/20 05:10 [place] # (Auto) 0.4 x10^3/uL (0.3-0.8) 04/10/20 05:10 Eos # (Auto) 0.0 x10^3/uL (0.0-0.2) 04/10/20 05:10 Baso # (Auto) 0.1 X10^3/uL (0.0-0.1) 04/10/20 05:10 Absolute Nucleated RBC 0.0 /100WBC 04/10/20 05:10 Total Counted 100 04/10/20 05:10 Neutrophils % (Manual) 86 % (39-76) H 04/10/20 05:10 Band Neutrophils % 6 % (0-10) 04/10/20 05:10 Lymphocytes % (Manual) 4 % (13-43) L 04/10/20 05:10 Monocytes % (Manual) 4 % (4-9) 04/10/20 05:10 Plt Morphology Comment Normal (NORMAL) 04/10/20 05:10 RBC Morphology Normal (NORMAL) 04/10/20 05:10 Sample Site Rr 04/10/20 05:00 ABG pH 7.450 (7.35-7.45) 04/10/20 05:00 ABG pCO2 27.0 mmHg (35.0-45.0) L 04/10/20 05:00 ABG pO2 64.0 mmHg (80.0-100.0) L 04/10/20 05:00 ABG HCO3 18.8 mmol/L (22-26) L 04/10/20 05:00 ABG O2 Saturation 93.0 % (90-100) 04/10/20 05:00 ABG Base Excess -3.9 mmol/L (-2.0-2.0) L 04/10/20 05:00 Riccardo Test Pos 04/10/20 05:00 A-a Gradient 366.0 mmHg 04/10/20 05:00 FiO2 65.0 04/10/20 05:00 Blood Gas Comments Amy well sw 04/10/20 05:00 Sodium 135 mmol/L (136-145) L 04/10/20 05:10 Corrected Sodium 141 mmol/L (136-145) 04/10/20 05:10 Potassium 4.1 mmol/L (3.5-5.1) 04/10/20 05:10 Chloride 104 mmol/L (98-107) 04/10/20 05:10 Carbon Dioxide 17.8 mmol/L (21-32) L 04/10/20 05:10 BUN 28 mg/dL (7-18) H 04/10/20 05:10 Creatinine 1.17 mg/dL (0.55-1.02) H 04/10/20 05:10 Est GFR (MDRD) Af Amer > 60 (>60) 04/10/20 05:10 Est GFR (MDRD) Non-Af 50 (>60) L 04/10/20 05:10 Glucose 337 mg/dL (65-99) H 04/10/20 05:10 Lactic Acid 0.8 mmol/L (0.4-2.0) 04/07/20 14:10 Calcium 7.8 mg/dL (8.5-10.1) L 04/10/20 05:10 Corrected Calcium 9.1 mg/dL (8.5-10.1) 04/10/20 05:10 Total Bilirubin 0.20 mg/dL (0.2-1.0) 04/10/20 05:10 AST 56 Units/L (15-37) H 04/10/20 05:10 ALT 54 Units/L (12-78) 04/10/20 05:10 Alkaline Phosphatase 149 Units/L (46-116) H 04/10/20 05:10 Lactate Dehydrogenase 662 Units/L (81-234) H 04/07/20 14:10 Troponin I < 0.02 ng/mL (0-1.5) 04/07/20 14:10 C-Reactive Protein 82.10 mg/L (0-3.0) H 04/07/20 14:10 Total Protein 6.5 g/dL (6.4-8.2) 04/10/20 05:10 Albumin 2.4 g/dL (3.4-5.0) L 04/10/20 05:10 Globulin 4.1 g/dL (2.5-4.5) 04/10/20 05:10 Albumin/Globulin Ratio 0.6 Ratio (1.1-2.1) L 04/10/20 05:10 HCG, Qual Negative <10 mIU/mL 04/07/20 14:10 Specimen Type Catherized urine 04/07/20 16:00 Urine Color Yellow (YELLOW) 04/07/20 16:00 Urine Appearance Clear (CLEAR) 04/07/20 16:00 Urine pH 6.0 (5.0 - 8.0) 04/07/20 16:00 Ur Specific [place] 1.010 (1.000-1.030) 04/07/20 16:00 Urine Protein 2+ (NEGATIVE) 04/07/20 16:00 Urine Glucose (UA) Negative (NEGATIVE) 04/07/20 16:00 Urine Ketones Negative (NEGATIVE) 04/07/20 16:00 Urine Occult Blood 1+ (NEGATIVE) 04/07/20 16:00 Urine Nitrite Negative (NEGATIVE) 04/07/20 16:00 Urine Bilirubin Negative (NEGATIVE) 04/07/20 16:00 Urine Urobilinogen Normal (NORMAL) 04/07/20 16:00 Ur Leukocyte Esterase 1+ (NEGATIVE) 04/07/20 16:00 Urine RBC 0-2 /HPF (0-3) 04/07/20 16:00 Urine WBC 3-5 /HPF (0-5) 04/07/20 16:00 Ur Squamous Epith Cells Rare /HPF (NEGATIVE) 04/07/20 16:00 Urine Bacteria Negative /HPF (NEGATIVE) 04/07/20 16:00 Ur Culture Indicated? No/not indicated 04/07/20 16:00 SARS-CoV-2 (PCR) Positive (NEGATIVE) A 04/07/20 14:14 Miscellaneous Test Cancelled 04/07/20 14:14 Plan (1) Acute hypoxemic respiratory failure due to COVID-19: Status: Acute Plan: IV solumedrol, Bronchodilators, Supplemental O2 (2) COVID-19: Status: Acute (3) FRANCESCO (acute kidney injury): Status: Acute
[2020-04-10] MEDS: NS 1000 ML 1,000 ML IV SCH ×2 (13:04→15:53)
[2020-04-10] MEDS ORDERED: ACTEMRA SQ ONE (14:42)
[2020-04-10] MEDS ORDERED: ACTEMRA IV NR ×2 (16:00)
[2020-04-10] MEDS ORDERED: NS IV NR ×2 (16:00)
[2020-04-10] MEDS: SNACK - Diabetic Appropriate PO SCH (19:36)
[2020-04-10] MEDS: COLACE CAP 100 MG PO PRN (22:30)
[2020-04-11] MEDS: NS 1000 ML 1,000 ML IV SCH ×2 (03:35→18:24)
[2020-04-11 05:13] LABS: ABG BASE EXCESS -2.2 mmol/L (-2.0-2.0); ABG HCO3 20.4 mmol/L (22-26)
[2020-04-11] MEDS: VENTOLIN or PROAIR HFA IN PRN ×3 (05:14→20:40)
[2020-04-11 05:33] LABS: BASOPHILS % (AUTO) 0.2 % (0.2-1.0); HEMATOCRIT 26.4 % (36.0-47.0); HEMOGLOBIN 9.3 g/dL (12.0-16.0); LYMPHOCYTES # (AUTO) 0.6 X10^3/uL (1.3-2.9); LYMPHOCYTES % (AUTO) 4.3 % (21.0-51.0); MEAN CORPUSCULAR HEMOGLOBIN 29.4 pg (27.0-34.0); MEAN CORPUSCULAR HGB CONC 35.1 g/dL (33.0-35.0); MEAN CORPUSCULAR VOLUME 83.8 fL (80.0-100.0); MEAN PLATELET VOLUME 8.3 fL (7.4-11.0); MONOCYTES # (AUTO) 0.3 x10^3/uL (0.3-0.8); MONOCYTES % (AUTO) 2.2 % (0.0-13.0); NEUTROPHILS # (AUTO) 13.8 x10^3/uL (2.2-4.8); NEUTROPHILS % (AUTO) 93.3 % (42.0-75.0); PLATELET COUNT 390 X10^3/uL (150.0-450.0); RED BLOOD COUNT 3.15 X10^6/uL (3.5-5.4); RED CELL DISTRIBUTION WIDTH 14.7 % (11.6-16.5); WHITE BLOOD COUNT 14.8 X10^3/uL (3.6-10.0)
[2020-04-11 05:39] LABS: ALANINE AMINOTRANSFERASE 55 Units/L (12-78); ALBUMIN 2.4 g/dL (3.4-5.0); ALKALINE PHOSPHATASE 140 Units/L (46-116); ASPARTATE AMINO TRANSFERASE 57 Units/L (15-37); BLOOD UREA NITROGEN 20 mg/dL (7-18); CALCIUM 7.7 mg/dL (8.5-10.1); CARBON DIOXIDE 21.2 mmol/L (21-32); CHLORIDE 106 mmol/L (98-107); COR NA(FOR HYPERGLY) 141 mmol/L (136-145); CREATININE 0.94 mg/dL (0.55-1.02); SODIUM 138 mmol/L (136-145); TOTAL PROTEIN 6.1 g/dL (6.4-8.2); eGFR NON BLACK RACES > 60 (>60)
[2020-04-11 05:54] LABS: BAND NEUTROPHILS % 5 % (0-10); PLATELET MORPHOLOGY COMMENT NORMAL (NORMAL)
[2020-04-11] MEDS: HumuLIN R SUBCUT PRN ×3 (06:30→15:41)
--- NOTE | 2020-04-11 09:47 | PCM.PROG ---
Progress Note Progress Note for Day of Date of Exam: 04/11/20 Subjective Subjective: Pt is a 60 yo f w/ no pmhx admitted for COVID-19 pneumonia and Acute respiratory failure. Covid-19 positive on 04/07/20. She is still reporting minimal improvement in her breathing and now having constipation. Labs/imaging: Wbc 14.8, Hgb 9.3, Plt 390, Na 138, K 3.6, HCO3 21.2, Cr 0.94, Gluc 221, AB.47/28/67/20.4/94% on heated HiFlo FiO2 60%. Attempt to wean today based on clinical status. She received Actemra(400mg x1) on 04/10. Pt has been given colace and milk of magnesium, will give lactulose today, consider enema if no bowel movement. Continue IV Solumedrol q8h, IVF NS@75ml/h. Albuterol inh prn, Vitamin C, Abx Levaquin. Continue to monitor patient and follow up labs/imaging in the morning. Past Medical Family Social History Past Med/Fam/Surg Hx: No changes since H&P Allergies: Allergies No Known Drug Allergies Allergy (Verified 04/07/20 14:00) Review of Systems ROS: No change since H&P Vital Signs and I&O's Vital Signs: Temperature 97.9 F Pulse Rate [Right Brachial] 82 Pulse Rate 80 Respiratory Rate 15 Blood Pressure [Right Arm] 127/58 Blood Pressure 152/69 O2 Sat by Pulse Oximetry 91 Intake and Output: Intake & Output 04/08/20 04/09/20 04/10/20 04/11/20 23:59 23:59 23:59 23:59 Intake Total 1386 / 1386 3199 / 3199 3746 / 3746 850 / 850 Output Total 1225 / 1225 1425 / 1425 1600 / 1600 375 / 375 Balance 161 / 161 1774 / 1774 2146 / 2146 475 / 475 Physical Exam Oriented: Normal Eyes: Normal Ear: Normal Nose: Normal Throat: Normal Respiratory: Diminished and Wheezes Cardiovascular: Normal : Normal Auscultation: Bowel Sounds: Normal Tenderness: Normal Skin: Normal Musculoskeletal: Normal Mood Description: Calm Speech Pattern: Clear Laboratory and Diagnostics Result Diagrams: 04/11/20 05:00 04/11/20 05:00 Labs: 04/07/20 14:15 Blood Blood Culture - Preliminary 04/07/20 14:10 Blood Blood Culture - Preliminary Laboratory WBC 14.8 X10^3/uL (3.6-10.0) H 04/11/20 05:00 RBC 3.15 X10^6/uL (3.5-5.4) L 04/11/20 05:00 Hgb 9.3 g/dL (12.0-16.0) L 04/11/20 05:00 Hct 26.4 % (36.0-47.0) L 04/11/20 05:00 MCV 83.8 fL (80.0-100.0) 04/11/20 05:00 MCH 29.4 pg (27.0-34.0) 04/11/20 05:00 MCHC 35.1 g/dL (33.0-35.0) H 04/11/20 05:00 RDW 14.7 % (11.6-16.5) 04/11/20 05:00 Plt Count 390 X10^3/uL (150.0-450.0) 04/11/20 05:00 Plt Count Comment Adequate (ADEQUATE) 04/11/20 05:00 MPV 8.3 fL (7.4-11.0) 04/11/20 05:00 Neut % (Auto) 93.3 % (42.0-75.0) H 04/11/20 05:00 Lymph % (Auto) 4.3 % (21.0-51.0) L 04/11/20 05:00 [place] % (Auto) 2.2 % (0.0-13.0) 04/11/20 05:00 Eos % (Auto) 0.0 % (0.9-2.9) L 04/11/20 05:00 Baso % (Auto) 0.2 % (0.2-1.0) 04/11/20 05:00 Neut # (Auto) 13.8 x10^3/uL (2.2-4.8) H 04/11/20 05:00 Lymph # (Auto) 0.6 X10^3/uL (1.3-2.9) L 04/11/20 05:00 [place] # (Auto) 0.3 x10^3/uL (0.3-0.8) 04/11/20 05:00 Eos # (Auto) 0.0 x10^3/uL (0.0-0.2) 04/11/20 05:00 Baso # (Auto) 0.0 X10^3/uL (0.0-0.1) 04/11/20 05:00 Absolute Nucleated RBC 0.1 /100WBC 04/11/20 05:00 Total Counted 100 04/11/20 05:00 Neutrophils % (Manual) 90 % (39-76) H 04/11/20 05:00 Band Neutrophils % 5 % (0-10) 04/11/20 05:00 Lymphocytes % (Manual) 3 % (13-43) L 04/11/20 05:00 Monocytes % (Manual) 2 % (4-9) L 04/11/20 05:00 Plt Morphology Comment Normal (NORMAL) 04/11/20 05:00 RBC Morphology Normal (NORMAL) 04/11/20 05:00 Sample Site [facility] 04/11/20 05:07 ABG pH 7.470 (7.35-7.45) H 04/11/20 05:07 ABG pCO2 28.0 mmHg (35.0-45.0) L 04/11/20 05:07 ABG pO2 67.0 mmHg (80.0-100.0) L 04/11/20 05:07 ABG HCO3 20.4 mmol/L (22-26) L 04/11/20 05:07 ABG O2 Saturation 94.0 % (90-100) 04/11/20 05:07 ABG Base Excess -2.2 mmol/L (-2.0-2.0) L 04/11/20 05:07 Riccardo Test Na 04/11/20 05:07 A-a Gradient 326.0 mmHg 04/11/20 05:07 FiO2 60.0 04/11/20 05:07 Blood Gas Comments Amy abg well-mtf 04/11/20 05:07 Sodium 138 mmol/L (136-145) 04/11/20 05:00 Corrected Sodium 141 mmol/L (136-145) 04/11/20 05:00 Potassium 3.6 mmol/L (3.5-5.1) 04/11/20 05:00 Chloride 106 mmol/L (98-107) 04/11/20 05:00 Carbon Dioxide 21.2 mmol/L (21-32) 04/11/20 05:00 BUN 20 mg/dL (7-18) H 04/11/20 05:00 Creatinine 0.94 mg/dL (0.55-1.02) 04/11/20 05:00 Est GFR (MDRD) Af Amer > 60 (>60) 04/11/20 05:00 Est GFR (MDRD) Non-Af > 60 (>60) 04/11/20 05:00 Glucose 221 mg/dL (65-99) H 04/11/20 05:00 Lactic Acid 0.8 mmol/L (0.4-2.0) 04/07/20 14:10 Calcium 7.7 mg/dL (8.5-10.1) L 04/11/20 05:00 Corrected Calcium 9.0 mg/dL (8.5-10.1) 04/11/20 05:00 Total Bilirubin 0.30 mg/dL (0.2-1.0) 04/11/20 05:00 AST 57 Units/L (15-37) H 04/11/20 05:00 ALT 55 Units/L (12-78) 04/11/20 05:00 Alkaline Phosphatase 140 Units/L (46-116) H 04/11/20 05:00 Lactate Dehydrogenase 662 Units/L (81-234) H 04/07/20 14:10 Troponin I < 0.02 ng/mL (0-1.5) 04/07/20 14:10 C-Reactive Protein 82.10 mg/L (0-3.0) H 04/07/20 14:10 Total Protein 6.1 g/dL (6.4-8.2) L 04/11/20 05:00 Albumin 2.4 g/dL (3.4-5.0) L 04/11/20 05:00 Globulin 3.7 g/dL (2.5-4.5) 04/11/20 05:00 Albumin/Globulin Ratio 0.6 Ratio (1.1-2.1) L 04/11/20 05:00 HCG, Qual Negative <10 mIU/mL 04/07/20 14:10 Specimen Type Catherized urine 04/07/20 16:00 Urine Color Yellow (YELLOW) 04/07/20 16:00 Urine Appearance Clear (CLEAR) 04/07/20 16:00 Urine pH 6.0 (5.0 - 8.0) 04/07/20 16:00 Ur Specific [place] 1.010 (1.000-1.030) 04/07/20 16:00 Urine Protein 2+ (NEGATIVE) 04/07/20 16:00 Urine Glucose (UA) Negative (NEGATIVE) 04/07/20 16:00 Urine Ketones Negative (NEGATIVE) 04/07/20 16:00 Urine Occult Blood 1+ (NEGATIVE) 04/07/20 16:00 Urine Nitrite Negative (NEGATIVE) 04/07/20 16:00 Urine Bilirubin Negative (NEGATIVE) 04/07/20 16:00 Urine Urobilinogen Normal (NORMAL) 04/07/20 16:00 Ur Leukocyte Esterase 1+ (NEGATIVE) 04/07/20 16:00 Urine RBC 0-2 /HPF (0-3) 04/07/20 16:00 Urine WBC 3-5 /HPF (0-5) 04/07/20 16:00 Ur Squamous Epith Cells Rare /HPF (NEGATIVE) 04/07/20 16:00 Urine Bacteria Negative /HPF (NEGATIVE) 04/07/20 16:00 Ur Culture Indicated? No/not indicated 04/07/20 16:00 SARS-CoV-2 (PCR) Positive (NEGATIVE) A 04/07/20 14:14 Miscellaneous Test Cancelled 04/07/20 14:14 Plan (1) Acute hypoxemic respiratory failure due to COVID-19: Status: Acute Plan: IV solumedrol, Bronchodilators, Supplemental O2 (2) COVID-19: Status: Acute (3) FRANCESCO (acute kidney injury): Status: Acute
[2020-04-11] MEDS: LEVAQUIN PREMIX IV 750 MG 750 MG/150 ML BAG IV SCH (09:51)
[2020-04-11] MEDS: VITAMIN C PO SCH (09:51)
[2020-04-11] MEDS: MILK OF MAGNESIA PO PRN (09:51)
[2020-04-11] MEDS: LOVENOX INJ 40 MG SYR SC SCH (09:51)
[2020-04-11] MEDS: COLACE CAP 100 MG PO PRN (09:51)
[2020-04-11] MEDS ORDERED: CHRONULAC ONE (11:19)
[2020-04-11] MEDS: CHRONULAC PO ONE (11:40)
[2020-04-11] MEDS: SNACK - Diabetic Appropriate PO SCH (20:15)
[2020-04-12] MEDS ORDERED: ROBITUSSIN DM PO PRN (01:28)
[2020-04-12] MEDS ORDERED: ROBITUSSIN (PLAIN) ONE (01:32)
[2020-04-12] MEDS: TYLENOL 325 MG TAB PO PRN (01:54)
[2020-04-12 05:20] LABS: BASOPHILS % (AUTO) 0.3 % (0.2-1.0); EOSINOPHILS % (AUTO) 0.1 % (0.9-2.9); HEMATOCRIT 28.6 % (36.0-47.0); HEMOGLOBIN 9.9 g/dL (12.0-16.0); LYMPHOCYTES % (AUTO) 7.7 % (21.0-51.0); MEAN CORPUSCULAR HEMOGLOBIN 29.1 pg (27.0-34.0); MEAN CORPUSCULAR HGB CONC 34.5 g/dL (33.0-35.0); MEAN CORPUSCULAR VOLUME 84.1 fL (80.0-100.0); MEAN PLATELET VOLUME 8.2 fL (7.4-11.0); MONOCYTES # (AUTO) 0.4 x10^3/uL (0.3-0.8); MONOCYTES % (AUTO) 2.8 % (0.0-13.0); NEUTROPHILS # (AUTO) 11.9 x10^3/uL (2.2-4.8); NEUTROPHILS % (AUTO) 89.1 % (42.0-75.0); PLATELET COUNT 455 X10^3/uL (150.0-450.0); RED CELL DISTRIBUTION WIDTH 14.3 % (11.6-16.5); WHITE BLOOD COUNT 13.4 X10^3/uL (3.6-10.0)
[2020-04-12 05:35] LABS: ALANINE AMINOTRANSFERASE 51 Units/L (12-78); ALBUMIN 2.2 g/dL (3.4-5.0); ALKALINE PHOSPHATASE 133 Units/L (46-116); ASPARTATE AMINO TRANSFERASE 51 Units/L (15-37); BLOOD UREA NITROGEN 18 mg/dL (7-18); CALCIUM 7.7 mg/dL (8.5-10.1); CHLORIDE 109 mmol/L (98-107); COR CA(FOR HYPOALB) 9.1 mg/dL (8.5-10.1); COR NA(FOR HYPERGLY) 140 mmol/L (136-145); CREATININE 1.09 mg/dL (0.55-1.02); SODIUM 139 mmol/L (136-145); TOTAL PROTEIN 5.7 g/dL (6.4-8.2); eGFR NON BLACK RACES 54 (>60)
[2020-04-12] MEDS: NS 1000 ML 1,000 ML IV SCH ×2 (05:44→15:25)
[2020-04-12] MEDS: VENTOLIN or PROAIR HFA IN PRN ×4 (05:50→17:50)
[2020-04-12] MEDS ORDERED: MICRO K EXTEN CAP 10 MEQ PO PRN (06:11)
[2020-04-12] MEDS ORDERED: K-RIDER 10 MEQ/NS 100 ML 10 MEQ/100 ML BAG IV PRN (06:11)
[2020-04-12] MEDS ORDERED: KLOR-CON PO PRN (06:11)
[2020-04-12] MEDS ORDERED: POTASSIUM CHLORIDE LIQ 20 MEQ UDC PO PRN (06:11)
[2020-04-12] MEDS ORDERED: POTASSIUM CHL 40 MEQ/NS 0.45% 500 ML IV PRN (06:11)
[2020-04-12] MEDS ORDERED: POTASSIUM CHL 60 MEQ/NS 0.45% 500 ML IV PRN (06:11)
[2020-04-12 06:43] LABS: ABG BASE EXCESS -0.6 mmol/L (-2.0-2.0); ABG HCO3 23.1 mmol/L (22-26)
[2020-04-12] MEDS ORDERED: IMODIUM CAP 2 MG PO ONE (08:33)
[2020-04-12] MEDS ORDERED: COLACE CAP 100 MG PO PRN (08:34)
[2020-04-12] MEDS: VITAMIN C PO SCH (09:43)
[2020-04-12] MEDS: LOVENOX INJ 40 MG SYR SC SCH (10:19)
[2020-04-12] MEDS: HumuLIN R SUBCUT PRN (11:56)
--- NOTE | 2020-04-12 12:11 | PCM.PROG ---
Progress Note Progress Note for Day of Date of Exam: 04/12/20 Subjective Subjective: Pt is a 60 yo f w/ no pmhx admitted for COVID-19 pneumonia and Acute respiratory failure. Covid-19 positive on 04/07/20. She is reporting some improvement in her breathing. Her constipation resolved with lactulose and now she is having some loose stools, will give immodium. Labs/imaging: Wbc 13.4, Hgb 9.9, Plt 455, Na 139, K 3.4, Cr 1.09, Gluc 134, AB.44/34/134/23/99% on heated HiFlo FiO2 60%, which has improved and will attempt to wean today based on clinical status. She received Actemra(400mg x1) on 04/10. Continue IV Solumedrol q8h, IVF NS@KVO. Albuterol inh prn, Vitamin C, Abx Levaquin. Continue to monitor patient and follow up labs/imaging in the morning. Past Medical Family Social History Past Med/Fam/Surg Hx: No changes since H&P Allergies: Allergies No Known Drug Allergies Allergy (Verified 04/07/20 14:00) Review of Systems ROS: No change since H&P Vital Signs and I&O's Vital Signs: Temperature 97.9 F Pulse Rate [Right Brachial] 73 Pulse Rate 66 Respiratory Rate 31 Blood Pressure [Right Arm] 157/71 Blood Pressure 152/69 O2 Sat by Pulse Oximetry 92 Intake and Output: Intake & Output 04/09/20 04/10/20 04/11/20 04/12/20 23:59 23:59 23:59 23:59 Intake Total 3199 / 3199 3746 / 3746 3012 / 3012 913 / 913 Output Total 1425 / 1425 1600 / 1600 1400 / 1400 300 / 300 Balance 1774 / 1774 2146 / 2146 1612 / 1612 613 / 613 Physical Exam Oriented: Normal Eyes: Normal Ear: Normal Nose: Normal Throat: Normal Respiratory: Diminished and Wheezes Cardiovascular: Normal : Normal Auscultation: Bowel Sounds: Normal Tenderness: Normal Skin: Normal Musculoskeletal: Normal Mood Description: Calm Speech Pattern: Clear Laboratory and Diagnostics Result Diagrams: 04/12/20 04:58 04/12/20 04:58 Labs: 04/07/20 14:15 Blood Blood Culture - Preliminary 04/07/20 14:10 Blood Blood Culture - Preliminary Laboratory WBC 13.4 X10^3/uL (3.6-10.0) H 04/12/20 04:58 RBC 3.40 X10^6/uL (3.5-5.4) L 04/12/20 04:58 Hgb 9.9 g/dL (12.0-16.0) L 04/12/20 04:58 Hct 28.6 % (36.0-47.0) L 04/12/20 04:58 MCV 84.1 fL (80.0-100.0) 04/12/20 04:58 MCH 29.1 pg (27.0-34.0) 04/12/20 04:58 MCHC 34.5 g/dL (33.0-35.0) 04/12/20 04:58 RDW 14.3 % (11.6-16.5) 04/12/20 04:58 Plt Count 455 X10^3/uL (150.0-450.0) H 04/12/20 04:58 Plt Count Comment Adequate (ADEQUATE) 04/11/20 05:00 MPV 8.2 fL (7.4-11.0) 04/12/20 04:58 Neut % (Auto) 89.1 % (42.0-75.0) H 04/12/20 04:58 Lymph % (Auto) 7.7 % (21.0-51.0) L 04/12/20 04:58 [place] % (Auto) 2.8 % (0.0-13.0) 04/12/20 04:58 Eos % (Auto) 0.1 % (0.9-2.9) L 04/12/20 04:58 Baso % (Auto) 0.3 % (0.2-1.0) 04/12/20 04:58 Neut # (Auto) 11.9 x10^3/uL (2.2-4.8) H 04/12/20 04:58 Lymph # (Auto) 1.0 X10^3/uL (1.3-2.9) L 04/12/20 04:58 [place] # (Auto) 0.4 x10^3/uL (0.3-0.8) 04/12/20 04:58 Eos # (Auto) 0.0 x10^3/uL (0.0-0.2) 04/12/20 04:58 Baso # (Auto) 0.0 X10^3/uL (0.0-0.1) 04/12/20 04:58 Absolute Nucleated RBC 0.1 /100WBC 04/12/20 04:58 Total Counted 100 04/11/20 05:00 Neutrophils % (Manual) 90 % (39-76) H 04/11/20 05:00 Band Neutrophils % 5 % (0-10) 04/11/20 05:00 Lymphocytes % (Manual) 3 % (13-43) L 04/11/20 05:00 Monocytes % (Manual) 2 % (4-9) L 04/11/20 05:00 Plt Morphology Comment Normal (NORMAL) 04/11/20 05:00 RBC Morphology Normal (NORMAL) 04/11/20 05:00 Sample Site Lbra 04/12/20 06:38 ABG pH 7.440 (7.35-7.45) 04/12/20 06:38 ABG pCO2 34.0 mmHg (35.0-45.0) L 04/12/20 06:38 ABG pO2 134.0 mmHg (80.0-100.0) H 04/12/20 06:38 ABG HCO3 23.1 mmol/L (22-26) 04/12/20 06:38 ABG O2 Saturation 99.0 % (90-100) 04/12/20 06:38 ABG Base Excess -0.6 mmol/L (-2.0-2.0) 04/12/20 06:38 Riccardo Test Na 04/12/20 06:38 A-a Gradient 251.0 mmHg 04/12/20 06:38 FiO2 60.0 04/12/20 06:38 Blood Gas Comments Amy abg well-mtf 04/12/20 06:38 Sodium 139 mmol/L (136-145) 04/12/20 04:58 Corrected Sodium 140 mmol/L (136-145) 04/12/20 04:58 Potassium 3.4 mmol/L (3.5-5.1) L 04/12/20 04:58 Chloride 109 mmol/L (98-107) H 04/12/20 04:58 Carbon Dioxide 22.0 mmol/L (21-32) 04/12/20 04:58 BUN 18 mg/dL (7-18) 04/12/20 04:58 Creatinine 1.09 mg/dL (0.55-1.02) H 04/12/20 04:58 Est GFR (MDRD) Af Amer > 60 (>60) 04/12/20 04:58 Est GFR (MDRD) Non-Af 54 (>60) L 04/12/20 04:58 Glucose 134 mg/dL (65-99) H 04/12/20 04:58 Lactic Acid 0.8 mmol/L (0.4-2.0) 04/07/20 14:10 Calcium 7.7 mg/dL (8.5-10.1) L 04/12/20 04:58 Corrected Calcium 9.1 mg/dL (8.5-10.1) 04/12/20 04:58 Magnesium 2.2 mg/dL (1.7-2.9) 04/12/20 04:58 Total Bilirubin 0.30 mg/dL (0.2-1.0) 04/12/20 04:58 AST 51 Units/L (15-37) H 04/12/20 04:58 ALT 51 Units/L (12-78) 04/12/20 04:58 Alkaline Phosphatase 133 Units/L (46-116) H 04/12/20 04:58 Lactate Dehydrogenase 662 Units/L (81-234) H 04/07/20 14:10 Troponin I < 0.02 ng/mL (0-1.5) 04/07/20 14:10 C-Reactive Protein 82.10 mg/L (0-3.0) H 04/07/20 14:10 Total Protein 5.7 g/dL (6.4-8.2) L 04/12/20 04:58 Albumin 2.2 g/dL (3.4-5.0) L 04/12/20 04:58 Globulin 3.5 g/dL (2.5-4.5) 04/12/20 04:58 Albumin/Globulin Ratio 0.6 Ratio (1.1-2.1) L 04/12/20 04:58 HCG, Qual Negative <10 mIU/mL 04/07/20 14:10 Specimen Type Catherized urine 04/07/20 16:00 Urine Color Yellow (YELLOW) 04/07/20 16:00 Urine Appearance Clear (CLEAR) 04/07/20 16:00 Urine pH 6.0 (5.0 - 8.0) 04/07/20 16:00 Ur Specific [place] 1.010 (1.000-1.030) 04/07/20 16:00 Urine Protein 2+ (NEGATIVE) 04/07/20 16:00 Urine Glucose (UA) Negative (NEGATIVE) 04/07/20 16:00 Urine Ketones Negative (NEGATIVE) 04/07/20 16:00 Urine Occult Blood 1+ (NEGATIVE) 04/07/20 16:00 Urine Nitrite Negative (NEGATIVE) 04/07/20 16:00 Urine Bilirubin Negative (NEGATIVE) 04/07/20 16:00 Urine Urobilinogen Normal (NORMAL) 04/07/20 16:00 Ur Leukocyte Esterase 1+ (NEGATIVE) 04/07/20 16:00 Urine RBC 0-2 /HPF (0-3) 04/07/20 16:00 Urine WBC 3-5 /HPF (0-5) 04/07/20 16:00 Ur Squamous Epith Cells Rare /HPF (NEGATIVE) 04/07/20 16:00 Urine Bacteria Negative /HPF (NEGATIVE) 04/07/20 16:00 Ur Culture Indicated? No/not indicated 04/07/20 16:00 SARS-CoV-2 (PCR) Positive (NEGATIVE) A 04/07/20 14:14 Miscellaneous Test Cancelled 04/07/20 14:14 Plan (1) Acute hypoxemic respiratory failure due to COVID-19: Status: Acute Plan: IV solumedrol, Bronchodilators, Supplemental O2 (2) COVID-19: Status: Acute (3) FRANCESCO (acute kidney injury): Status: Acute
[2020-04-12] MEDS: K-DUR TAB 20 MEQ PO PRN ×2 (14:15→18:37)
[2020-04-12] MEDS: ZOFRAN INJ 4 MG VIAL IVP PRN (22:50)
[2020-04-13] MEDS: VENTOLIN or PROAIR HFA IN PRN ×4 (04:15→16:26)
[2020-04-13 05:26] LABS: BASOPHILS # (AUTO) 0.1 X10^3/uL (0.0-0.1); BASOPHILS % (AUTO) 0.5 % (0.2-1.0); EOSINOPHILS # (AUTO) 0.3 x10^3/uL (0.0-0.2); HEMATOCRIT 30.7 % (36.0-47.0); HEMOGLOBIN 10.6 g/dL (12.0-16.0); LYMPHOCYTES % (AUTO) 10.2 % (21.0-51.0); MEAN CORPUSCULAR HEMOGLOBIN 29.1 pg (27.0-34.0); MEAN CORPUSCULAR HGB CONC 34.6 g/dL (33.0-35.0); MEAN CORPUSCULAR VOLUME 84.1 fL (80.0-100.0); MEAN PLATELET VOLUME 7.9 fL (7.4-11.0); MONOCYTES # (AUTO) 0.1 x10^3/uL (0.3-0.8); MONOCYTES % (AUTO) 0.8 % (0.0-13.0); NEUTROPHILS # (AUTO) 8.2 x10^3/uL (2.2-4.8); NEUTROPHILS % (AUTO) 85.5 % (42.0-75.0); PLATELET COUNT 465 X10^3/uL (150.0-450.0); RED BLOOD COUNT 3.65 X10^6/uL (3.5-5.4); RED CELL DISTRIBUTION WIDTH 14.4 % (11.6-16.5); WHITE BLOOD COUNT 9.6 X10^3/uL (3.6-10.0)
[2020-04-13 05:43] LABS: ALANINE AMINOTRANSFERASE 38 Units/L (12-78); ALBUMIN 2.1 g/dL (3.4-5.0); ALKALINE PHOSPHATASE 131 Units/L (46-116); ASPARTATE AMINO TRANSFERASE 37 Units/L (15-37); BLOOD UREA NITROGEN 13 mg/dL (7-18); CALCIUM 7.5 mg/dL (8.5-10.1); CARBON DIOXIDE 22.9 mmol/L (21-32); CHLORIDE 107 mmol/L (98-107); COR NA(FOR HYPERGLY) 139 mmol/L (136-145); CREATININE 0.81 mg/dL (0.55-1.02); SODIUM 138 mmol/L (136-145); TOTAL PROTEIN 5.5 g/dL (6.4-8.2); eGFR NON BLACK RACES > 60 (>60)
[2020-04-13] MEDS ORDERED: IMODIUM CAP 2 MG PO PRN (08:32)
[2020-04-13] MEDS ORDERED: CHLORASEPTIC SPRAY MT PRN (08:34)
[2020-04-13] MEDS ORDERED: TUSSIONEX PENNKINETIC SUSP PO PRN (08:37)
[2020-04-13] MEDS ORDERED: LEVAQUIN PREMIX IV 750 MG 750 MG/150 ML BAG IV SCH (09:00)
[2020-04-13] MEDS: VITAMIN C PO SCH (09:34)
[2020-04-13] MEDS: LOVENOX INJ 40 MG SYR SC SCH (09:34)
[2020-04-13] MEDS: K-DUR TAB 20 MEQ PO PRN (09:35)
[2020-04-13] MEDS: ZOFRAN INJ 4 MG VIAL IVP PRN (09:36)
--- NOTE | 2020-04-13 11:02 | PCM.PROG ---
Progress Note Progress Note for Day of Date of Exam: 04/13/20 Subjective Subjective: Pt is a 60 yo f w/ no pmhx admitted for COVID-19 pneumonia(positive on 04/07/20) and Acute respiratory failure. Yesterday, she was able to tolerate nasal cannula for a short period but then had to be placed back on high flow oxygen. Labs/imaging: Wbc 9.6, Hgb 10.6, Plt 465, Na 138, K 3.8, Cr 0.81, Gluc 147. She is currently on high flow FiO2 55%, will continue to attempt to wean today based on clinical status. Her treatments include IV Solumedrol q8h, IVF NS@KVO. Albuterol inh prn, Vitamin C, Abx Levaquin, received Actemra(400mg x1) on 04/10. Continue to monitor patient and follow up labs/imaging in the morning. Past Medical Family Social History Past Med/Fam/Surg Hx: No changes since H&P Allergies: Allergies No Known Drug Allergies Allergy (Verified 04/07/20 14:00) Review of Systems ROS: No change since H&P Vital Signs and I&O's Vital Signs: Temperature 99.4 F Pulse Rate [Right Brachial] 79 Pulse Rate 66 Respiratory Rate 28 Blood Pressure [Right Arm] 159/72 Blood Pressure 148/65 O2 Sat by Pulse Oximetry 94 Intake and Output: Intake & Output 04/10/20 04/11/20 04/12/20 04/13/20 23:59 23:59 23:59 23:59 Intake Total 3746 / 3746 3012 / 3012 2520 / 2520 695 / 695 Output Total 1600 / 1600 1400 / 1400 1600 / 1600 400 / 400 Balance 2146 / 2146 1612 / 1612 920 / 920 295 / 295 Physical Exam Oriented: Normal Eyes: Normal Ear: Normal Nose: Normal Throat: Normal Respiratory: Diminished and Rales Cardiovascular: Normal : Normal Auscultation: Bowel Sounds: Normal Tenderness: Normal Skin: Normal Musculoskeletal: Normal Mood Description: Calm Speech Pattern: Clear Laboratory and Diagnostics Result Diagrams: 04/13/20 05:04 04/13/20 05:04 Labs: 04/07/20 14:15 Blood Blood Culture - Final 04/07/20 14:10 Blood Blood Culture - Final Laboratory WBC 9.6 X10^3/uL (3.6-10.0) 04/13/20 05:04 RBC 3.65 X10^6/uL (3.5-5.4) 04/13/20 05:04 Hgb 10.6 g/dL (12.0-16.0) L 04/13/20 05:04 Hct 30.7 % (36.0-47.0) L 04/13/20 05:04 MCV 84.1 fL (80.0-100.0) 04/13/20 05:04 MCH 29.1 pg (27.0-34.0) 04/13/20 05:04 MCHC 34.6 g/dL (33.0-35.0) 04/13/20 05:04 RDW 14.4 % (11.6-16.5) 04/13/20 05:04 Plt Count 465 X10^3/uL (150.0-450.0) H 04/13/20 05:04 Plt Count Comment Adequate (ADEQUATE) 04/11/20 05:00 MPV 7.9 fL (7.4-11.0) 04/13/20 05:04 Neut % (Auto) 85.5 % (42.0-75.0) H 04/13/20 05:04 Lymph % (Auto) 10.2 % (21.0-51.0) L 04/13/20 05:04 [place] % (Auto) 0.8 % (0.0-13.0) 04/13/20 05:04 Eos % (Auto) 3.0 % (0.9-2.9) H 04/13/20 05:04 Baso % (Auto) 0.5 % (0.2-1.0) 04/13/20 05:04 Neut # (Auto) 8.2 x10^3/uL (2.2-4.8) H 04/13/20 05:04 Lymph # (Auto) 1.0 X10^3/uL (1.3-2.9) L 04/13/20 05:04 [place] # (Auto) 0.1 x10^3/uL (0.3-0.8) L 04/13/20 05:04 Eos # (Auto) 0.3 x10^3/uL (0.0-0.2) H 04/13/20 05:04 Baso # (Auto) 0.1 X10^3/uL (0.0-0.1) 04/13/20 05:04 Absolute Nucleated RBC 0.1 /100WBC 04/13/20 05:04 Total Counted 100 04/11/20 05:00 Neutrophils % (Manual) 90 % (39-76) H 04/11/20 05:00 Band Neutrophils % 5 % (0-10) 04/11/20 05:00 Lymphocytes % (Manual) 3 % (13-43) L 04/11/20 05:00 Monocytes % (Manual) 2 % (4-9) L 04/11/20 05:00 Plt Morphology Comment Normal (NORMAL) 04/11/20 05:00 RBC Morphology Normal (NORMAL) 04/11/20 05:00 Sample Site [facility] 04/12/20 06:38 ABG pH 7.440 (7.35-7.45) 04/12/20 06:38 ABG pCO2 34.0 mmHg (35.0-45.0) L 04/12/20 06:38 ABG pO2 134.0 mmHg (80.0-100.0) H 04/12/20 06:38 ABG HCO3 23.1 mmol/L (22-26) 04/12/20 06:38 ABG O2 Saturation 99.0 % (90-100) 04/12/20 06:38 ABG Base Excess -0.6 mmol/L (-2.0-2.0) 04/12/20 06:38 Riccardo Test Na 04/12/20 06:38 A-a Gradient 251.0 mmHg 04/12/20 06:38 FiO2 60.0 04/12/20 06:38 Blood Gas Comments Amy abg well-mtf 04/12/20 06:38 Sodium 138 mmol/L (136-145) 04/13/20 05:04 Corrected Sodium 139 mmol/L (136-145) 04/13/20 05:04 Potassium 3.8 mmol/L (3.5-5.1) 04/13/20 05:04 Chloride 107 mmol/L (98-107) 04/13/20 05:04 Carbon Dioxide 22.9 mmol/L (21-32) 04/13/20 05:04 BUN 13 mg/dL (7-18) 04/13/20 05:04 Creatinine 0.81 mg/dL (0.55-1.02) 04/13/20 05:04 Est GFR (MDRD) Af Amer > 60 (>60) 04/13/20 05:04 Est GFR (MDRD) Non-Af > 60 (>60) 04/13/20 05:04 Glucose 147 mg/dL (65-99) H 04/13/20 05:04 POC Glucose (mg/dL) 145 mg/dL (65-99) H 04/13/20 05:06 Lactic Acid 0.8 mmol/L (0.4-2.0) 04/07/20 14:10 Calcium 7.5 mg/dL (8.5-10.1) L 04/13/20 05:04 Corrected Calcium 9.0 mg/dL (8.5-10.1) 04/13/20 05:04 Magnesium 2.2 mg/dL (1.7-2.9) 04/12/20 04:58 Total Bilirubin 0.50 mg/dL (0.2-1.0) 04/13/20 05:04 AST 37 Units/L (15-37) 04/13/20 05:04 ALT 38 Units/L (12-78) 04/13/20 05:04 Alkaline Phosphatase 131 Units/L (46-116) H 04/13/20 05:04 Lactate Dehydrogenase 662 Units/L (81-234) H 04/07/20 14:10 Troponin I < 0.02 ng/mL (0-1.5) 04/07/20 14:10 C-Reactive Protein 82.10 mg/L (0-3.0) H 04/07/20 14:10 Total Protein 5.5 g/dL (6.4-8.2) L 04/13/20 05:04 Albumin 2.1 g/dL (3.4-5.0) L 04/13/20 05:04 Globulin 3.4 g/dL (2.5-4.5) 04/13/20 05:04 Albumin/Globulin Ratio 0.6 Ratio (1.1-2.1) L 04/13/20 05:04 HCG, Qual Negative <10 mIU/mL 04/07/20 14:10 Specimen Type Catherized urine 04/07/20 16:00 Urine Color Yellow (YELLOW) 04/07/20 16:00 Urine Appearance Clear (CLEAR) 04/07/20 16:00 Urine pH 6.0 (5.0 - 8.0) 04/07/20 16:00 Ur Specific [place] 1.010 (1.000-1.030) 04/07/20 16:00 Urine Protein 2+ (NEGATIVE) 04/07/20 16:00 Urine Glucose (UA) Negative (NEGATIVE) 04/07/20 16:00 Urine Ketones Negative (NEGATIVE) 04/07/20 16:00 Urine Occult Blood 1+ (NEGATIVE) 04/07/20 16:00 Urine Nitrite Negative (NEGATIVE) 04/07/20 16:00 Urine Bilirubin Negative (NEGATIVE) 04/07/20 16:00 Urine Urobilinogen Normal (NORMAL) 04/07/20 16:00 Ur Leukocyte Esterase 1+ (NEGATIVE) 04/07/20 16:00 Urine RBC 0-2 /HPF (0-3) 04/07/20 16:00 Urine WBC 3-5 /HPF (0-5) 04/07/20 16:00 Ur Squamous Epith Cells Rare /HPF (NEGATIVE) 04/07/20 16:00 Urine Bacteria Negative /HPF (NEGATIVE) 04/07/20 16:00 Ur Culture Indicated? No/not indicated 04/07/20 16:00 SARS-CoV-2 (PCR) Positive (NEGATIVE) A 04/07/20 14:14 Miscellaneous Test Cancelled 04/07/20 14:14 Plan (1) Acute hypoxemic respiratory failure due to COVID-19: Status: Acute Plan: IV solumedrol, Bronchodilators, Supplemental O2 (2) COVID-19: Status: Acute (3) FRANCESCO (acute kidney injury): Status: Acute
[2020-04-13] MEDS: HumuLIN R SUBCUT PRN ×2 (12:41→17:55)
[2020-04-13] MEDS: NS 1000 ML 1,000 ML IV SCH ×2 (12:42→17:53)
[2020-04-13 18:12] LABS: ABG BASE EXCESS -2.2 mmol/L (-2.0-2.0); ABG HCO3 20.6 mmol/L (22-26)
[2020-04-13 18:13] LABS: ABG ALLEN TEST POS
[2020-04-13 20:33] LABS: ABG HCO3 21.8 mmol/L (22-26)
[2020-04-13 20:34] LABS: ABG ALLEN TEST POS
[2020-04-13] MEDS: ZOSYN VIAL 4.5 GRAMS 4.5 G in NS 100 ML IV + SPIKE MINIBAG* 100 ML IV SCH ×2 (20:38→21:17)
[2020-04-13] MEDS: SNACK - Diabetic Appropriate PO SCH (21:00)
--- NOTE | 2020-04-13 21:59 | RAD ---
HISTORYsob positive covid abg worseSTUDYCHEST, 1 [id number] cardiomediastinal silhouette. Patchy and confluent bilateral pulmonary opacities have progressed since the previous study. No sizable effusion or visible pneumothorax. There are increasing bilateral midlung consolidative opacities. No acute osseous finding.IMPRESSIONWorsening bilateral pulmonary opacities with developing consolidation.Electronically signed by: Catrachito Lai (April 13, 2020 21:58:14)
[2020-04-13] MEDS: ZITHROMAX INJ 500 MG VIAL 500 MG in NS 250 ML IV 250 ML IV SCH (23:10)
[2020-04-13] MEDS ORDERED: LASIX IVP ONE (23:42)
[2020-04-14] MEDS: ZOSYN VIAL 4.5 GRAMS 4.5 G in NS 100 ML IV + SPIKE MINIBAG* 100 ML IV SCH ×3 (05:36→21:55)
[2020-04-14 05:41] LABS: BASOPHILS % (AUTO) 0.1 % (0.2-1.0); EOSINOPHILS # (AUTO) 0.3 x10^3/uL (0.0-0.2); EOSINOPHILS % (AUTO) 3.7 % (0.9-2.9); HEMATOCRIT 29.6 % (36.0-47.0); HEMOGLOBIN 10.5 g/dL (12.0-16.0); LYMPHOCYTES # (AUTO) 0.6 X10^3/uL (1.3-2.9); LYMPHOCYTES % (AUTO) 7.2 % (21.0-51.0); MEAN CORPUSCULAR HEMOGLOBIN 29.3 pg (27.0-34.0); MEAN CORPUSCULAR HGB CONC 35.4 g/dL (33.0-35.0); MEAN CORPUSCULAR VOLUME 82.7 fL (80.0-100.0); MEAN PLATELET VOLUME 7.4 fL (7.4-11.0); MONOCYTES # (AUTO) 0.2 x10^3/uL (0.3-0.8); NEUTROPHILS # (AUTO) 7.2 x10^3/uL (2.2-4.8); PLATELET COUNT 479 X10^3/uL (150.0-450.0); RED BLOOD COUNT 3.59 X10^6/uL (3.5-5.4); RED CELL DISTRIBUTION WIDTH 14.3 % (11.6-16.5); WHITE BLOOD COUNT 8.2 X10^3/uL (3.6-10.0)
[2020-04-14 05:51] LABS: BLOOD UREA NITROGEN 10 mg/dL (7-18); CALCIUM 7.3 mg/dL (8.5-10.1); CARBON DIOXIDE 24.1 mmol/L (21-32); CHLORIDE 103 mmol/L (98-107); COR NA(FOR HYPERGLY) 136 mmol/L (136-145); SODIUM 135 mmol/L (136-145); eGFR NON BLACK RACES 60 (>60)
[2020-04-14] MEDS: LOVENOX INJ 40 MG SYR SC SCH (08:57)
[2020-04-14] MEDS: VITAMIN C PO SCH (08:57)
[2020-04-14] MEDS: ZITHROMAX INJ 500 MG VIAL 500 MG in NS 250 ML IV 250 ML IV SCH (08:57)
[2020-04-14] MEDS: K-DUR TAB 20 MEQ PO PRN (08:59)
[2020-04-14] MEDS: ZOFRAN INJ 4 MG VIAL IVP PRN ×2 (08:59→20:20)
[2020-04-14] MEDS: VENTOLIN or PROAIR HFA IN PRN ×3 (09:44→20:30)
[2020-04-14 09:45] LABS: ABG BASE EXCESS 0.2 mmol/L (-2.0-2.0); ABG HCO3 23.3 mmol/L (22-26)
[2020-04-14] MEDS: SNACK - Diabetic Appropriate PO SCH (20:00)
[2020-04-14] MEDS ORDERED: REMDESIVIR (INVESTIGATIONAL DRUG GS-5734) 200 MG in NS 250 ML IV 250 ML IV NR (20:00)
[2020-04-14] MEDS: HumuLIN R SUBCUT PRN (21:55)
[2020-04-15] MEDS: VENTOLIN or PROAIR HFA IN PRN ×6 (00:20→21:29)
[2020-04-15 05:24] LABS: BASOPHILS % (AUTO) 0.3 % (0.2-1.0); EOSINOPHILS # (AUTO) 0.4 x10^3/uL (0.0-0.2); EOSINOPHILS % (AUTO) 4.6 % (0.9-2.9); HEMATOCRIT 29.1 % (36.0-47.0); HEMOGLOBIN 10.2 g/dL (12.0-16.0); LYMPHOCYTES # (AUTO) 0.7 X10^3/uL (1.3-2.9); LYMPHOCYTES % (AUTO) 9.2 % (21.0-51.0); MEAN CORPUSCULAR HEMOGLOBIN 29.5 pg (27.0-34.0); MEAN CORPUSCULAR HGB CONC 35.1 g/dL (33.0-35.0); MEAN PLATELET VOLUME 8.3 fL (7.4-11.0); MONOCYTES # (AUTO) 0.2 x10^3/uL (0.3-0.8); NEUTROPHILS # (AUTO) 6.5 x10^3/uL (2.2-4.8); NEUTROPHILS % (AUTO) 83.9 % (42.0-75.0); PLATELET COUNT 449 X10^3/uL (150.0-450.0); RED BLOOD COUNT 3.46 X10^6/uL (3.5-5.4); RED CELL DISTRIBUTION WIDTH 14.2 % (11.6-16.5); WHITE BLOOD COUNT 7.7 X10^3/uL (3.6-10.0)
[2020-04-15 05:27] LABS: BLOOD UREA NITROGEN 11 mg/dL (7-18); CALCIUM 7.2 mg/dL (8.5-10.1); CARBON DIOXIDE 22.9 mmol/L (21-32); CHLORIDE 105 mmol/L (98-107); COR NA(FOR HYPERGLY) 137 mmol/L (136-145); CREATININE 1.01 mg/dL (0.55-1.02); SODIUM 137 mmol/L (136-145); eGFR NON BLACK RACES 59 (>60)
[2020-04-15] MEDS: ZOSYN VIAL 4.5 GRAMS 4.5 G in NS 100 ML IV + SPIKE MINIBAG* 100 ML IV SCH ×3 (06:00→21:54)
[2020-04-15] MEDS: K-DUR TAB 20 MEQ PO PRN (06:01)
[2020-04-15 06:26] LABS: ABG BASE EXCESS -1.2 mmol/L (-2.0-2.0); ABG HCO3 20.1 mmol/L (22-26)
[2020-04-15] MEDS: MAGNESIUM SULFATE 1 GRAM/100 mL PREMIX 1 GM/100 ML BAG IV PRN ×2 (06:39→10:48)
[2020-04-15] MEDS: LOVENOX INJ 40 MG SYR SC SCH (09:43)
[2020-04-15] MEDS: VITAMIN C PO SCH (09:44)
[2020-04-15] MEDS: ZITHROMAX INJ 500 MG VIAL 500 MG in NS 250 ML IV 250 ML IV SCH (09:44)
[2020-04-15] MEDS: HumuLIN R SUBCUT PRN (11:56)
--- NOTE | 2020-04-15 13:01 | RAD ---
CHEST, 1 VIEWHISTORY: PNEUMONIAStudy: Single view of the chest.Comparison:April 13, 2020Findings:The cardiomediastinal silhouette is normal.Worsening of bilateral interstitial and airspace opacities particular in the lower lobes. Osseous structures demonstrate no acute abnormality.IMPRESSION:1. Worsening bilateral airspace opacities.Electronically signed by: EMILIANO MOULTON (April 15, 2020 13:00:07)
[2020-04-15] MEDS: SNACK - Diabetic Appropriate PO SCH (21:53)
[2020-04-15] MEDS: REMDESIVIR (INVESTIGATIONAL DRUG GS-5734) 100 MG in NS 250 ML IV 250 ML IV SCH (21:53)
[2020-04-16] MEDS: VENTOLIN or PROAIR HFA IN PRN ×2 (05:55→09:30)
[2020-04-16] MEDS: ZOSYN VIAL 4.5 GRAMS 4.5 G in NS 100 ML IV + SPIKE MINIBAG* 100 ML IV SCH ×3 (06:00→22:15)
[2020-04-16] MEDS ORDERED: NS 1000 ML 1,000 ML ONE (06:03)
[2020-04-16 06:14] LABS: BASOPHILS % (AUTO) 0.2 % (0.2-1.0); BLOOD UREA NITROGEN 11 mg/dL (7-18); CALCIUM 7.5 mg/dL (8.5-10.1); CHLORIDE 104 mmol/L (98-107); COR NA(FOR HYPERGLY) 137 mmol/L (136-145); CREATININE 0.95 mg/dL (0.55-1.02); EOSINOPHILS # (AUTO) 0.4 x10^3/uL (0.0-0.2); EOSINOPHILS % (AUTO) 3.9 % (0.9-2.9); HEMATOCRIT 32.9 % (36.0-47.0); HEMOGLOBIN 11.5 g/dL (12.0-16.0); LYMPHOCYTES # (AUTO) 0.6 X10^3/uL (1.3-2.9); LYMPHOCYTES % (AUTO) 6.1 % (21.0-51.0); MAGNESIUM 2.1 mg/dL (1.7-2.9); MEAN CORPUSCULAR HEMOGLOBIN 29.8 pg (27.0-34.0); MEAN CORPUSCULAR HGB CONC 34.9 g/dL (33.0-35.0); MEAN CORPUSCULAR VOLUME 85.2 fL (80.0-100.0); MEAN PLATELET VOLUME 7.8 fL (7.4-11.0); MONOCYTES # (AUTO) 0.4 x10^3/uL (0.3-0.8); MONOCYTES % (AUTO) 3.6 % (0.0-13.0); NEUTROPHILS # (AUTO) 9.1 x10^3/uL (2.2-4.8); NEUTROPHILS % (AUTO) 86.2 % (42.0-75.0); PLATELET COUNT 484 X10^3/uL (150.0-450.0); RED BLOOD COUNT 3.87 X10^6/uL (3.5-5.4); RED CELL DISTRIBUTION WIDTH 14.9 % (11.6-16.5); SODIUM 135 mmol/L (136-145); WHITE BLOOD COUNT 10.6 X10^3/uL (3.6-10.0); eGFR NON BLACK RACES > 60 (>60)
[2020-04-16 06:42] LABS: ABG BASE EXCESS -3.5 mmol/L (-2.0-2.0); ABG HCO3 20.1 mmol/L (22-26)
[2020-04-16 06:44] LABS: ABG ALLEN TEST POS
[2020-04-16] MEDS ORDERED: DIPRIVAN VIAL ONE (08:16)
[2020-04-16] MEDS ORDERED: NORCURON INJ 10 MG VIAL ONE (08:16)
[2020-04-16] MEDS ORDERED: QUELICIN (OR ANECTINE) ONE (08:16)
[2020-04-16] MEDS ORDERED: VERSED ONE (08:16)
[2020-04-16] MEDS: LOVENOX INJ 40 MG SYR SC SCH (09:47)
[2020-04-16] MEDS: K-DUR TAB 20 MEQ PO PRN (09:49)
[2020-04-16] MEDS: VITAMIN C PO SCH (09:49)
[2020-04-16] MEDS: ZITHROMAX INJ 500 MG VIAL 500 MG in NS 250 ML IV 250 ML IV SCH (10:03)
[2020-04-16 10:21] LABS: ABG BASE EXCESS -4.2 mmol/L (-2.0-2.0)
--- NOTE | 2020-04-16 10:48 | W.DIS.FURT ---
Summary of Discharge Discharge Summary of Date Date of Exam: 04/16/20 Admission Date Date of Admission: 04/07/20 Admission Diagnosis Patient Problems (Updated 04/16/20 @ 11:27 by Nehemias Cooper) ARDS (adult respiratory distress syndrome) (Acute) J80 Acute hypoxemic respiratory failure due to COVID-19 (Acute) U07.1, J96.01 COVID-19 (Acute) U07.1 FRANCESCO (acute kidney injury) (Acute) N17.9 Hospital Course: Pt is a 60 yo f w/ no pmhx admitted for COVID-19 pneumonia (positive on 04/07/20), Acute respiratory failure, and now ARDs. Her treatments include Remdesivir 100mg qhs (started on 04/15), received a dose of Actemra (400mg on 04/10), Zosyn+Azithromycin (Levaquin d/c over the weekend), IV Solumedrol (now discontinued), Albuterol inh prn, Vitamin C. Over the weekend her respiratory status declined and continues to decline today requiring high flow at max 100% FiO2. CXR on 04/15: Worsening of bilateral interstitial and airspace opacities particular in the lower lobes. VS: BP 166/73, P 78, RR 45s. Labs/imaging: ABG: pH 7.39/ 33 C02/ 39 O2/ 20 HCO3/ 73%O2sat/ 100% FiO2, on high flow Wbc 10.6, Hgb 11.5, Plt 484, Na 137, K 3.8, Cr 0.95, Gluc 176. Pt is in critical status, meeting Severe ARDs criteria. Discussed with patient and at length need for intubation and mechanical ventilation. Pt and verbalized their understanding, including benefits and risk. Pt was intubated and placed on mechanical ventilation for transfer to [place], [place]. Critical time spent: 30-74 minutes Vital Signs: Vital Signs (72 hours) 04/13/20 10:55 04/13/20 11:00 04/13/20 11:15 Temperature Pulse Rate 74 75 74 Pulse Rate [Right Brachial] 75 Respiratory Rate 41 H 69 H 41 H Blood Pressure 156/68 141/58 Blood Pressure [Right Arm] 143/68 O2 Sat by Pulse Oximetry 89 L 90 L 91 L 04/13/20 11:30 04/13/20 11:45 04/13/20 12:00 Temperature 99.4 F Pulse Rate 69 70 74 Pulse Rate [Right Brachial] 74 Respiratory Rate 38 H 49 H 33 H Blood Pressure 143/68 Blood Pressure [Right Arm] 143/68 O2 Sat by Pulse Oximetry 94 L 94 L 94 L 04/13/20 12:15 04/13/20 12:30 04/13/20 12:45 Temperature Pulse Rate 86 72 72 Pulse Rate [Right Brachial] Respiratory Rate 32 H 35 H 28 H Blood Pressure Blood Pressure [Right Arm] O2 Sat by Pulse Oximetry 91 L 94 L 96 04/13/20 13:00 04/13/20 13:15 04/13/20 13:30 Temperature Pulse Rate 74 81 78 Pulse Rate [Right Brachial] 74 Respiratory Rate 42 H 85 H 36 H Blood Pressure 140/65 Blood Pressure [Right Arm] 140/65 O2 Sat by Pulse Oximetry 90 L 92 L 95 04/13/20 13:45 04/13/20 14:00 04/13/20 14:17 Temperature Pulse Rate 82 76 82 Pulse Rate [Right Brachial] 82 Respiratory Rate 30 H 36 H Blood Pressure 131/60 Blood Pressure [Right Arm] 131/60 O2 Sat by Pulse Oximetry 91 L 96 94 L 04/13/20 15:00 04/13/20 16:00 04/13/20 16:26 Temperature 98.7 F Pulse Rate Pulse Rate [Right Brachial] 75 72 Respiratory Rate 30 H 34 H Blood Pressure Blood Pressure [Right Arm] 142/69 O2 Sat by Pulse Oximetry 91 L 91 L 90 L 04/13/20 16:28 04/13/20 17:55 04/13/20 19:00 Temperature Pulse Rate Pulse Rate [Right Brachial] 71 Respiratory Rate 30 H 34 H 38 H Blood Pressure Blood Pressure [Right Arm] 165/72 O2 Sat by Pulse Oximetry 93 L 04/13/20 20:00 04/13/20 20:42 04/13/20 20:44 Temperature 98.3 F Pulse Rate 70 Pulse Rate [Right Brachial] 67 Respiratory Rate 34 H 29 H Blood Pressure Blood Pressure [Right Arm] 165/76 O2 Sat by Pulse Oximetry 93 L 92 L 04/13/20 21:00 04/13/20 22:00 04/13/20 23:00 Temperature Pulse Rate Pulse Rate [Right Brachial] 72 72 86 Respiratory Rate 34 H 19 25 H Blood Pressure Blood Pressure [Right Arm] 165/75 151/70 134/68 O2 Sat by Pulse Oximetry 91 L 91 L 99 04/14/20 00:00 04/14/20 00:09 04/14/20 01:00 Temperature 98.2 F Pulse Rate Pulse Rate [Right Brachial] 84 80 Respiratory Rate 32 H 28 H 36 H Blood Pressure Blood Pressure [Right Arm] 143/69 145/65 O2 Sat by Pulse Oximetry 98 99 04/14/20 02:00 04/14/20 03:00 04/14/20 04:00 Temperature 98.8 F Pulse Rate Pulse Rate [Right Brachial] 74 67 65 Respiratory Rate 29 H 18 34 H Blood Pressure Blood Pressure [Right Arm] 158/68 141/65 148/69 O2 Sat by Pulse Oximetry 97 100 100 04/14/20 05:00 04/14/20 05:45 04/14/20 06:00 Temperature Pulse Rate 60 Pulse Rate [Right Brachial] 68 66 Respiratory Rate 38 H 22 Blood Pressure Blood Pressure [Right Arm] 144/65 150/65 O2 Sat by Pulse Oximetry 93 L 95 93 L 04/14/20 07:00 04/14/20 08:00 04/14/20 09:00 Temperature 98.8 F Pulse Rate Pulse Rate [Right Brachial] 72 76 69 Respiratory Rate 22 21 24 Blood Pressure Blood Pressure [Right Arm] 166/69 157/66 132/61 O2 Sat by Pulse Oximetry 100 91 L 100 04/14/20 09:44 04/14/20 10:00 04/14/20 11:00 Temperature Pulse Rate 85 Pulse Rate [Right Brachial] 79 83 Respiratory Rate 26 H 21 30 H Blood Pressure Blood Pressure [Right Arm] 136/63 158/69 O2 Sat by Pulse Oximetry 92 L 93 L 93 L 04/14/20 12:00 04/14/20 13:00 04/14/20 14:00 Temperature 98.9 F Pulse Rate Pulse Rate [Right Brachial] 77 71 66 Respiratory Rate 20 18 18 Blood Pressure Blood Pressure [Right Arm] 145/66 141/63 141/63 O2 Sat by Pulse Oximetry 95 92 L 94 L 04/14/20 15:00 04/14/20 16:00 04/14/20 18:14 Temperature Pulse Rate 79 Pulse Rate [Right Brachial] 69 86 Respiratory Rate 26 H 26 H Blood Pressure Blood Pressure [Right Arm] 162/70 170/72 O2 Sat by Pulse Oximetry 91 L 86 L 94 L 04/14/20 18:15 04/14/20 19:00 04/14/20 20:00 Temperature 98.9 F Pulse Rate Pulse Rate [Right Brachial] 76 75 Respiratory Rate 22 21 28 H Blood Pressure Blood Pressure [Right Arm] 141/64 156/70 O2 Sat by Pulse Oximetry 94 L 95 04/14/20 20:31 04/14/20 20:32 04/14/20 21:00 Temperature Pulse Rate 70 Pulse Rate [Right Brachial] 70 Respiratory Rate 38 H 18 Blood Pressure Blood Pressure [Right Arm] 158/69 O2 Sat by Pulse Oximetry 95 96 04/14/20 22:00 04/14/20 23:00 04/15/20 00:00 Temperature Pulse Rate Pulse Rate [Right Brachial] 73 65 66 Respiratory Rate 21 19 33 H Blood Pressure Blood Pressure [Right Arm] 155/68 134/61 122/56 O2 Sat by Pulse Oximetry 94 L 94 L 95 04/15/20 01:00 04/15/20 02:00 04/15/20 03:00 Temperature 98.9 F Pulse Rate Pulse Rate [Right Brachial] 71 75 75 Respiratory Rate 24 25 H 12 Blood Pressure 129/60 Blood Pressure [Right Arm] 127/58 129/60 110/54 O2 Sat by Pulse Oximetry 100 98 99 04/15/20 04:00 04/15/20 04:30 04/15/20 05:00 Temperature 98.1 F Pulse Rate 75 Pulse Rate [Right Brachial] 69 73 Respiratory Rate 19 24 18 Blood Pressure Blood Pressure [Right Arm] 136/60 141/59 O2 Sat by Pulse Oximetry 97 94 L 95 04/15/20 06:00 04/15/20 07:00 04/15/20 08:00 Temperature 98.6 F Pulse Rate Pulse Rate [Right Brachial] 70 71 73 Respiratory Rate 22 29 H 26 H Blood Pressure Blood Pressure [Right Arm] 135/61 129/58 120/55 O2 Sat by Pulse Oximetry 98 90 L 92 L 04/15/20 09:00 04/15/20 09:40 04/15/20 10:00 Temperature Pulse Rate 86 Pulse Rate [Right Brachial] 60 47 L Respiratory Rate 60 H 47 H Blood Pressure Blood Pressure [Right Arm] 124/61 148/68 O2 Sat by Pulse Oximetry 94 L 96 92 L 05/31/20 11:00 04/15/20 12:00 04/15/20 13:00 Temperature 98.7 F Pulse Rate Pulse Rate [Right Brachial] 84 76 93 H Respiratory Rate 22 26 H 24 Blood Pressure Blood Pressure [Right Arm] 146/68 154/67 153/67 O2 Sat by Pulse Oximetry 92 L 94 L 97 04/15/20 13:40 04/15/20 14:00 04/15/20 15:00 Temperature Pulse Rate 89 Pulse Rate [Right Brachial] 85 80 Respiratory Rate 26 H 24 Blood Pressure Blood Pressure [Right Arm] 127/64 142/66 O2 Sat by Pulse Oximetry 100 97 93 L 04/15/20 16:00 04/15/20 17:00 04/15/20 17:50 Temperature Pulse Rate 84 Pulse Rate [Right Brachial] 72 75 Respiratory Rate 22 33 H 22 Blood Pressure Blood Pressure [Right Arm] 134/69 138/64 O2 Sat by Pulse Oximetry 93 L 91 L 92 L 04/15/20 18:00 04/15/20 19:00 04/15/20 19:01 Temperature Pulse Rate 81 78 Pulse Rate [Right Brachial] 79 Respiratory Rate 41 H 45 H 44 H Blood Pressure 140/64 Blood Pressure [Right Arm] 152/68 O2 Sat by Pulse Oximetry 90 L 87 L 89 L 04/15/20 19:59 04/15/20 20:01 04/15/20 20:02 Temperature 97.8 F Pulse Rate 87 89 Pulse Rate [Right Brachial] Respiratory Rate 35 H 35 H Blood Pressure 165/75 Blood Pressure [Right Arm] O2 Sat by Pulse Oximetry 87 L 86 L 04/15/20 21:00 04/15/20 21:29 04/15/20 22:00 Temperature Pulse Rate 75 76 79 Pulse Rate [Right Brachial] Respiratory Rate 42 H 27 H Blood Pressure 142/63 144/65 Blood Pressure [Right Arm] O2 Sat by Pulse Oximetry 91 L 91 L 91 L 04/15/20 23:00 04/16/20 00:00 04/16/20 00:01 Temperature Pulse Rate 75 74 80 Pulse Rate [Right Brachial] Respiratory Rate 43 H 23 43 H Blood Pressure 129/56 179/76 Blood Pressure [Right Arm] O2 Sat by Pulse Oximetry 90 L 97 94 L 04/16/20 01:00 04/16/20 01:01 04/16/20 02:00 Temperature Pulse Rate 81 78 78 Pulse Rate [Right Brachial] Respiratory Rate 13 65 H 39 H Blood Pressure 148/63 Blood Pressure [Right Arm] O2 Sat by Pulse Oximetry 86 L 87 L 94 L 04/16/20 02:01 04/16/20 03:00 04/16/20 04:00 Temperature 98.2 F Pulse Rate 80 75 79 Pulse Rate [Right Brachial] Respiratory Rate 41 H 22 29 H Blood Pressure 121/58 138/63 155/71 Blood Pressure [Right Arm] O2 Sat by Pulse Oximetry 99 94 L 95 04/16/20 05:00 04/16/20 05:55 04/16/20 06:00 Temperature Pulse Rate 79 70 Pulse Rate [Right Brachial] Respiratory Rate 38 H 38 H Blood Pressure 154/75 166/69 Blood Pressure [Right Arm] O2 Sat by Pulse Oximetry 96 89 L 95 04/16/20 07:00 04/16/20 08:00 04/16/20 09:00 Temperature 98.0 F Pulse Rate 80 78 86 Pulse Rate [Right Brachial] Respiratory Rate 22 30 H 45 H Blood Pressure 183/79 166/73 174/79 Blood Pressure [Right Arm] O2 Sat by Pulse Oximetry 91 L 91 L 88 L Labs: Laboratory Last Values WBC 10.6 X10^3/uL (3.6-10.0) H 04/16/20 05:21 RBC 3.87 X10^6/uL (3.5-5.4) 04/16/20 05:21 Hgb 11.5 g/dL (12.0-16.0) L 04/16/20 05:21 Hct 32.9 % (36.0-47.0) L 04/16/20 05:21 MCV 85.2 fL (80.0-100.0) 04/16/20 05:21 MCH 29.8 pg (27.0-34.0) 04/16/20 05:21 MCHC 34.9 g/dL (33.0-35.0) 04/16/20 05:21 RDW 14.9 % (11.6-16.5) 04/16/20 05:21 Plt Count 484 X10^3/uL (150.0-450.0) H 04/16/20 05:21 Plt Count Comment Adequate (ADEQUATE) 04/11/20 05:00 MPV 7.8 fL (7.4-11.0) 04/16/20 05:21 Neut % (Auto) 86.2 % (42.0-75.0) H 04/16/20 05:21 Lymph % (Auto) 6.1 % (21.0-51.0) L 04/16/20 05:21 [place] % (Auto) 3.6 % (0.0-13.0) 04/16/20 05:21 Eos % (Auto) 3.9 % (0.9-2.9) H 04/16/20 05:21 Baso % (Auto) 0.2 % (0.2-1.0) 04/16/20 05:21 Neut # (Auto) 9.1 x10^3/uL (2.2-4.8) H 04/16/20 05:21 Lymph # (Auto) 0.6 X10^3/uL (1.3-2.9) L 04/16/20 05:21 [place] # (Auto) 0.4 x10^3/uL (0.3-0.8) 04/16/20 05:21 Eos # (Auto) 0.4 x10^3/uL (0.0-0.2) H 04/16/20 05:21 Baso # (Auto) 0.0 X10^3/uL (0.0-0.1) 04/16/20 05:21 Absolute Nucleated RBC 0.0 /100WBC 04/16/20 05:21 Total Counted 100 04/11/20 05:00 Neutrophils % (Manual) 90 % (39-76) H 04/11/20 05:00 Band Neutrophils % 5 % (0-10) 04/11/20 05:00 Lymphocytes % (Manual) 3 % (13-43) L 04/11/20 05:00 Monocytes % (Manual) 2 % (4-9) L 04/11/20 05:00 Plt Morphology Comment Normal (NORMAL) 04/11/20 05:00 RBC Morphology Normal (NORMAL) 04/11/20 05:00 Sample Site Lbr 04/16/20 10:16 ABG pH 7.390 (7.35-7.45) 04/16/20 10:16 ABG pCO2 33.0 mmHg (35.0-45.0) L 04/16/20 10:16 ABG pO2 39.0 mmHg (80.0-100.0) L* 04/16/20 10:16 ABG HCO3 20.0 mmol/L (22-26) L 04/16/20 10:16 ABG O2 Saturation 73.0 % (90-100) L* 04/16/20 10:16 ABG Base Excess -4.2 mmol/L (-2.0-2.0) L 04/16/20 10:16 Riccardo Test Na 04/16/20 10:16 A-a Gradient 633.0 mmHg 04/16/20 10:16 FiO2 100.0 04/16/20 10:16 Blood Gas Comments Amy well aw/gb 04/16/20 10:16 Sodium 135 mmol/L (136-145) L 04/16/20 05:21 Corrected Sodium 137 mmol/L (136-145) 04/16/20 05:21 Potassium 3.8 mmol/L (3.5-5.1) 04/16/20 05:21 Chloride 104 mmol/L (98-107) 04/16/20 05:21 Carbon Dioxide 21.0 mmol/L (21-32) 04/16/20 05:21 BUN 11 mg/dL (7-18) 04/16/20 05:21 Creatinine 0.95 mg/dL (0.55-1.02) 04/16/20 05:21 Est GFR (MDRD) Af Amer > 60 (>60) 04/16/20 05:21 Est GFR (MDRD) Non-Af > 60 (>60) 04/16/20 05:21 Glucose 176 mg/dL (65-99) H 04/16/20 05:21 POC Glucose (mg/dL) 145 mg/dL (65-99) H 04/13/20 05:06 Lactic Acid 0.8 mmol/L (0.4-2.0) 04/07/20 14:10 Calcium 7.5 mg/dL (8.5-10.1) L 04/16/20 05:21 Corrected Calcium 9.0 mg/dL (8.5-10.1) 04/13/20 05:04 Magnesium 2.1 mg/dL (1.7-2.9) 04/16/20 05:21 Total Bilirubin 0.50 mg/dL (0.2-1.0) 04/13/20 05:04 AST 37 Units/L (15-37) 04/13/20 05:04 ALT 38 Units/L (12-78) 04/13/20 05:04 Alkaline Phosphatase 131 Units/L (46-116) H 04/13/20 05:04 Lactate Dehydrogenase 662 Units/L (81-234) H 04/07/20 14:10 Troponin I < 0.02 ng/mL (0-1.5) 04/07/20 14:10 C-Reactive Protein 82.10 mg/L (0-3.0) H 04/07/20 14:10 Total Protein 5.5 g/dL (6.4-8.2) L 04/13/20 05:04 Albumin 2.1 g/dL (3.4-5.0) L 04/13/20 05:04 Globulin 3.4 g/dL (2.5-4.5) 04/13/20 05:04 Albumin/Globulin Ratio 0.6 Ratio (1.1-2.1) L 04/13/20 05:04 HCG, Qual Negative <10 mIU/mL 04/07/20 14:10 Specimen Type Catherized urine 04/07/20 16:00 Urine Color Yellow (YELLOW) 04/07/20 16:00 Urine Appearance Clear (CLEAR) 04/07/20 16:00 Urine pH 6.0 (5.0 - 8.0) 04/07/20 16:00 Ur Specific [place] 1.010 (1.000-1.030) 04/07/20 16:00 Urine Protein 2+ (NEGATIVE) 04/07/20 16:00 Urine Glucose (UA) Negative (NEGATIVE) 04/07/20 16:00 Urine Ketones Negative (NEGATIVE) 04/07/20 16:00 Urine Occult Blood 1+ (NEGATIVE) 04/07/20 16:00 Urine Nitrite Negative (NEGATIVE) 04/07/20 16:00 Urine Bilirubin Negative (NEGATIVE) 04/07/20 16:00 Urine Urobilinogen Normal (NORMAL) 04/07/20 16:00 Ur Leukocyte Esterase 1+ (NEGATIVE) 04/07/20 16:00 Urine RBC 0-2 /HPF (0-3) 04/07/20 16:00 Urine WBC 3-5 /HPF (0-5) 04/07/20 16:00 Ur Squamous Epith Cells Rare /HPF (NEGATIVE) 04/07/20 16:00 Urine Bacteria Negative /HPF (NEGATIVE) 04/07/20 16:00 Ur Culture Indicated? No/not indicated 04/07/20 16:00 SARS-CoV-2 (PCR) Positive (NEGATIVE) A 04/07/20 14:14 Miscellaneous Test Cancelled 04/07/20 14:14 Reason For Visit: WEAK, HEAD, N/V/D Discharge Date Discharge Date: 04/16/20 Discharge Diagnosis All Active Problems (Updated 04/16/20 @ 11:27 by Nehemias Cooper) ARDS (adult respiratory distress syndrome) (Acute) Acute hypoxemic respiratory failure due to COVID-19 (Acute) COVID-19 (Acute) FRANCESCO (acute kidney injury) (Acute) Plan of Treatment: Continue with present treatment and follow up plan. Pt is to keep follow up appointment as instructed and take medications as ordered. Discharge Medications Discharge Medications: No Known Drug Allergies Allergy (Verified 04/07/20 14:00) CONTINUE taking the following medications NK 04/07/20 [History] Discharge Disposition Discharge Disposition: Transfer to [place], [place] Discharge Condition: Critical
--- NOTE | 2020-04-16 15:29 | PCM.PROG ---
Progress Note Progress Note for Day of Date of Exam: 04/16/20 Subjective Subjective: Pt is a 60 yo f w/ no pmhx admitted for COVID-19 pneumonia (positive on 04/07/20), Acute respiratory failure, and now ARDs. Her treatments include Remdesivir 100mg qhs (started on 04/15), received a dose of Actemra (400mg on 04/10), Zosyn+Azithromycin (Levaquin d/c over the weekend), IV Solumedrol (now discontinued), Albuterol inh prn, Vitamin C. Over the weekend her respiratory status declined and continues to decline today requiring high flow at max 100% FiO2. CXR on 04/15: Worsening of bilateral interstitial and airspace opacities particular in the lower lobes. VS: BP 166/73, P 78, RR 45s. Labs/imaging: ABG: pH 7.39/ 33 C02/ 39 O2/ 20 HCO3/ 73%O2sat/ 100% FiO2, on high flow. Wbc 10.6, Hgb 11.5, Plt 484, Na 137, K 3.8, Cr 0.95, Gluc 176. Pt is in critical status, meeting Severe ARDs criteria. Discussed with patient and at length need for intubation and mechanical ventilation. Pt and verbalized their understanding, including benefits and risk. Plan was discussed and transfer was being arranged but patient and her then refused intubation and transfer. I personally explained the risk associated with no intubation, including possible cardiac arrest. Pt and her understand those risk, they are considering leaving AMA, but tried to the best of my ability to strongly recommend further treatment. This was also explained to the patient by multiple staff members. Pt continues to refuse treatment including intubation and transfer. Critical time spent: 30-74 minutes Past Medical Family Social History Past Med/Fam/Surg Hx: No changes since H&P Allergies: Allergies No Known Drug Allergies Allergy (Verified 04/07/20 14:00) Review of Systems ROS: No change since H&P Vital Signs and I&O's Vital Signs: Temperature 97.8 F Pulse Rate [Right Brachial] 79 Pulse Rate 90 Respiratory Rate 43 Blood Pressure [Right Arm] 152/68 Blood Pressure 188/86 O2 Sat by Pulse Oximetry 91 Intake and Output: Intake & Output 04/13/20 04/14/20 04/15/20 04/16/20 23:59 23:59 23:59 23:59 Intake Total 2849 / 2849 2248 / 2248 1550 / 1550 320 / 320 Output Total 1400 / 1400 2500 / 2500 1000 / 1000 350 / 350 Balance 1449 / 1449 -252 / -252 550 / 550 -30 / -30 Physical Exam Oriented: Normal Eyes: Normal Ear: Normal Nose: Normal Throat: Normal Respiratory: Diminished and Rales Cardiovascular: Normal : Normal Auscultation: Bowel Sounds: Normal Tenderness: Normal Skin: Normal Musculoskeletal: Normal Mood Description: Calm Speech Pattern: Clear Laboratory and Diagnostics Result Diagrams: 04/16/20 05:21 04/16/20 05:21 Labs: 04/07/20 14:15 Blood Blood Culture - Final 04/07/20 14:10 Blood Blood Culture - Final Laboratory WBC 10.6 X10^3/uL (3.6-10.0) H 04/16/20 05:21 RBC 3.87 X10^6/uL (3.5-5.4) 04/16/20 05:21 Hgb 11.5 g/dL (12.0-16.0) L 04/16/20 05:21 Hct 32.9 % (36.0-47.0) L 04/16/20 05:21 MCV 85.2 fL (80.0-100.0) 04/16/20 05:21 MCH 29.8 pg (27.0-34.0) 04/16/20 05:21 MCHC 34.9 g/dL (33.0-35.0) 04/16/20 05:21 RDW 14.9 % (11.6-16.5) 04/16/20 05:21 Plt Count 484 X10^3/uL (150.0-450.0) H 04/16/20 05:21 Plt Count Comment Adequate (ADEQUATE) 04/11/20 05:00 MPV 7.8 fL (7.4-11.0) 04/16/20 05:21 Neut % (Auto) 86.2 % (42.0-75.0) H 04/16/20 05:21 Lymph % (Auto) 6.1 % (21.0-51.0) L 04/16/20 05:21 M[place] % (Auto) 3.6 % (0.0-13.0) 04/16/20 05:21 Eos % (Auto) 3.9 % (0.9-2.9) H 04/16/20 05:21 Baso % (Auto) 0.2 % (0.2-1.0) 04/16/20 05:21 Neut # (Auto) 9.1 x10^3/uL (2.2-4.8) H 04/16/20 05:21 Lymph # (Auto) 0.6 X10^3/uL (1.3-2.9) L 04/16/20 05:21 [place] # (Auto) 0.4 x10^3/uL (0.3-0.8) 04/16/20 05:21 Eos # (Auto) 0.4 x10^3/uL (0.0-0.2) H 04/16/20 05:21 Baso # (Auto) 0.0 X10^3/uL (0.0-0.1) 04/16/20 05:21 Absolute Nucleated RBC 0.0 /100WBC 04/16/20 05:21 Total Counted 100 04/11/20 05:00 Neutrophils % (Manual) 90 % (39-76) H 04/11/20 05:00 Band Neutrophils % 5 % (0-10) 04/11/20 05:00 Lymphocytes % (Manual) 3 % (13-43) L 04/11/20 05:00 Monocytes % (Manual) 2 % (4-9) L 04/11/20 05:00 Plt Morphology Comment Normal (NORMAL) 04/11/20 05:00 RBC Morphology Normal (NORMAL) 04/11/20 05:00 Sample Site Lbr 04/16/20 10:16 ABG pH 7.390 (7.35-7.45) 04/16/20 10:16 ABG pCO2 33.0 mmHg (35.0-45.0) L 04/16/20 10:16 ABG pO2 39.0 mmHg (80.0-100.0) L* 04/16/20 10:16 ABG HCO3 20.0 mmol/L (22-26) L 04/16/20 10:16 ABG O2 Saturation 73.0 % (90-100) L* 04/16/20 10:16 ABG Base Excess -4.2 mmol/L (-2.0-2.0) L 04/16/20 10:16 Riccardo Test Na 04/16/20 10:16 A-a Gradient 633.0 mmHg 04/16/20 10:16 FiO2 100.0 04/16/20 10:16 Blood Gas Comments Amy well aw/gb 04/16/20 10:16 Sodium 135 mmol/L (136-145) L 04/16/20 05:21 Corrected Sodium 137 mmol/L (136-145) 04/16/20 05:21 Potassium 3.8 mmol/L (3.5-5.1) 04/16/20 05:21 Chloride 104 mmol/L (98-107) 04/16/20 05:21 Carbon Dioxide 21.0 mmol/L (21-32) 04/16/20 05:21 BUN 11 mg/dL (7-18) 04/16/20 05:21 Creatinine 0.95 mg/dL (0.55-1.02) 04/16/20 05:21 Est GFR (MDRD) Af Amer > 60 (>60) 04/16/20 05:21 Est GFR (MDRD) Non-Af > 60 (>60) 04/16/20 05:21 Glucose 176 mg/dL (65-99) H 04/16/20 05:21 POC Glucose (mg/dL) 145 mg/dL (65-99) H 04/13/20 05:06 Lactic Acid 0.8 mmol/L (0.4-2.0) 04/07/20 14:10 Calcium 7.5 mg/dL (8.5-10.1) L 04/16/20 05:21 Corrected Calcium 9.0 mg/dL (8.5-10.1) 04/13/20 05:04 Magnesium 2.1 mg/dL (1.7-2.9) 04/16/20 05:21 Total Bilirubin 0.50 mg/dL (0.2-1.0) 04/13/20 05:04 AST 37 Units/L (15-37) 04/13/20 05:04 ALT 38 Units/L (12-78) 04/13/20 05:04 Alkaline Phosphatase 131 Units/L (46-116) H 04/13/20 05:04 Lactate Dehydrogenase 662 Units/L (81-234) H 04/07/20 14:10 Troponin I < 0.02 ng/mL (0-1.5) 04/07/20 14:10 C-Reactive Protein 82.10 mg/L (0-3.0) H 04/07/20 14:10 Total Protein 5.5 g/dL (6.4-8.2) L 04/13/20 05:04 Albumin 2.1 g/dL (3.4-5.0) L 04/13/20 05:04 Globulin 3.4 g/dL (2.5-4.5) 04/13/20 05:04 Albumin/Globulin Ratio 0.6 Ratio (1.1-2.1) L 04/13/20 05:04 HCG, Qual Negative <10 mIU/mL 04/07/20 14:10 Specimen Type Catherized urine 04/07/20 16:00 Urine Color Yellow (YELLOW) 04/07/20 16:00 Urine Appearance Clear (CLEAR) 04/07/20 16:00 Urine pH 6.0 (5.0 - 8.0) 04/07/20 16:00 Ur Specific [place] 1.010 (1.000-1.030) 04/07/20 16:00 Urine Protein 2+ (NEGATIVE) 04/07/20 16:00 Urine Glucose (UA) Negative (NEGATIVE) 04/07/20 16:00 Urine Ketones Negative (NEGATIVE) 04/07/20 16:00 Urine Occult Blood 1+ (NEGATIVE) 04/07/20 16:00 Urine Nitrite Negative (NEGATIVE) 04/07/20 16:00 Urine Bilirubin Negative (NEGATIVE) 04/07/20 16:00 Urine Urobilinogen Normal (NORMAL) 04/07/20 16:00 Ur Leukocyte Esterase 1+ (NEGATIVE) 04/07/20 16:00 Urine RBC 0-2 /HPF (0-3) 04/07/20 16:00 Urine WBC 3-5 /HPF (0-5) 04/07/20 16:00 Ur Squamous Epith Cells Rare /HPF (NEGATIVE) 04/07/20 16:00 Urine Bacteria Negative /HPF (NEGATIVE) 04/07/20 16:00 Ur Culture Indicated? No/not indicated 04/07/20 16:00 SARS-CoV-2 (PCR) Positive (NEGATIVE) A 04/07/20 14:14 Miscellaneous Test Cancelled 04/07/20 14:14 Plan (1) Acute hypoxemic respiratory failure due to COVID-19: Status: Acute Plan: IV solumedrol, Bronchodilators, Supplemental O2 (2) COVID-19: Status: Acute (3) FRANCESCO (acute kidney injury): Status: Acute
[2020-04-16] MEDS ORDERED: NS 250 ML IV 250 ML IV ONE (20:27)
[2020-04-16] MEDS: REMDESIVIR (INVESTIGATIONAL DRUG GS-5734) 100 MG in NS 250 ML IV 250 ML IV SCH (20:42)
[2020-04-16] MEDS ORDERED: MORPHINE SULFATE INJ 2 MG INJ IVP PRN (20:44)
[2020-04-16] MEDS ORDERED: MORPHINE SULFATE INJ 2 MG INJ ONE (20:49)
[2020-04-16 21:43] LABS: BILIRUBIN,URINE NEGATIVE (NEGATIVE); BLOOD/HEMOGLOBIN,URINE 2+ (NEGATIVE); GLUCOSE, URINE 1+ (NEGATIVE); KETONES,URINE 3+ (NEGATIVE); LEUKOCYTE ESTERASE ,URINE NEGATIVE (NEGATIVE); NITRITES,URINE NEGATIVE (NEGATIVE); PROTEIN,URINE 3+ (NEGATIVE); UROBILINOGEN,URINE NORMAL (NORMAL)
[2020-04-16 21:53] LABS: APPEARANCE,URINE CLEAR (CLEAR); BACTERIA,URINE NEGATIVE /HPF (NEGATIVE); COLOR,URINE PALE YELLOW (YELLOW); RBC,URINE 0-2 /HPF (0-3); SQUAMOUS EPITHELIAL CELL,UR NEGATIVE /HPF (NEGATIVE)
[2020-04-16 22:04] LABS: ABG BASE EXCESS -4.1 mmol/L (-2.0-2.0); ABG HCO3 20.9 mmol/L (22-26)
[2020-04-16 22:06] LABS: ABG ALLEN TEST POS
[2020-04-16] MEDS: SNACK - Diabetic Appropriate PO SCH (22:15)
[2020-04-16] MEDS ORDERED: DIPRIVAN PREMIX 1 GRAM IV 1,000 MG/100 ML VIAL ONE (23:07)
[2020-04-16] MEDS ORDERED: DIPRIVAN PREMIX 1 GRAM IV 1,000 MG/100 ML VIAL IV PRN (23:30)
[2020-04-16 23:47] LABS: ABG BASE EXCESS -5.4 mmol/L (-2.0-2.0); ABG HCO3 20.6 mmol/L (22-26)
--- NOTE | 2020-04-16 23:48 | DR.UPDATE ---
H&P Update History and Physical Update: History and Physical reviewed and patient examined. Changes noted: NO Yes with the following:Agree with H&P. Will intubate for respiratory distress/covid19 H&P Reviewed: Yes Patient was examined?: Yes Procedures (ALL) - Intubation Time out performed: Yes Sedative: other (versed 1mg, propofol 130mg) paralytic: succinylchline (80mg, followed by norcuron 10mg after return of spontaneous respirations) Laryngoscope: fiber optic video scope (glidescope 3) ET tube size: 7.5 Tube secured depth: 20 Tube secured location: teeth Tube placement confirmation: visualized tube passing through cords, equal breath sounds bilaterally, no breath sounds over epigastrium, comfirmation by capnometer Patient tolerated procedure: Yes Intubation complications: none
[2020-04-16 23:49] LABS: ABG ALLEN TEST POS
[2020-04-17 02:03] VITALS: BP 196/92
--- NOTE | 2020-04-17 09:53 | W.DIS.FURT ---
Summary of Discharge Discharge Summary of Date Date of Exam: 04/17/20 Admission Date Date of Admission: 04/07/20 Admission Diagnosis Hospital Course: Pt is a 60 yo f w/ no pmhx admitted for COVID-19 pneumonia (positive on 04/07/20), Acute respiratory failure, and ARDs. Her treatments include Remdesivir 100mg qhs (started on 04/15), received a dose of Actemra (400mg on 04/10), Zosyn+Azithromycin (Levaquin d/c over the weekend), IV Solumedrol (now discontinued), Albuterol inh prn, Vitamin C. Over the weekend her respiratory status declined and continues to decline today requiring high flow at max 100% FiO2. CXR on 04/15: Worsening of bilateral interstitial and airspace opacities particular in the lower lobes. VS: BP 166/73, P 78, RR 45s. Labs/imaging: ABG: pH 7.39/ 33 C02/ 39 O2/ 20 HCO3/ 73%O2sat/ 100% FiO2, on high flow Wbc 10.6, Hgb 11.5, Plt 484, Na 137, K 3.8, Cr 0.95, Gluc 176. Pt is in critical status, meeting Severe ARDs criteria. Discussed with patient and at length need for intubation and mechanical ventilation and had initially agreed with plan of intubation and transfer but then changed their decision and did not want further interventions. During the night patient became more unstable, having severe difficulty breathing and decided that she did want to pursue plan of intubation and transfer. Pt and verbalized their understanding, including benefits and risk. Pt was intubated and placed on mechanical ventilation for transfer to [place], [place]. Critical time spent: 30-74 minutes Vital Signs: Vital Signs (72 hours) 04/14/20 10:00 04/14/20 11:00 04/14/20 12:00 Temperature 98.9 F Pulse Rate Pulse Rate [Right Brachial] 79 83 77 Respiratory Rate 21 30 H 20 Blood Pressure Blood Pressure [Right Arm] 136/63 158/69 145/66 O2 Sat by Pulse Oximetry 93 L 93 L 95 04/14/20 13:00 04/14/20 14:00 04/14/20 15:00 Temperature Pulse Rate Pulse Rate [Right Brachial] 71 66 69 Respiratory Rate 18 18 26 H Blood Pressure Blood Pressure [Right Arm] 141/63 141/63 162/70 O2 Sat by Pulse Oximetry 92 L 94 L 91 L 04/14/20 16:00 04/14/20 18:14 04/14/20 18:15 Temperature Pulse Rate 79 Pulse Rate [Right Brachial] 86 Respiratory Rate 26 H 22 Blood Pressure Blood Pressure [Right Arm] 170/72 O2 Sat by Pulse Oximetry 86 L 94 L 04/14/20 19:00 04/14/20 20:00 04/14/20 20:31 Temperature 98.9 F Pulse Rate Pulse Rate [Right Brachial] 76 75 Respiratory Rate 21 28 H 38 H Blood Pressure Blood Pressure [Right Arm] 141/64 156/70 O2 Sat by Pulse Oximetry 94 L 95 04/14/20 20:32 04/14/20 21:00 04/14/20 22:00 Temperature Pulse Rate 70 Pulse Rate [Right Brachial] 70 73 Respiratory Rate 18 21 Blood Pressure Blood Pressure [Right Arm] 158/69 155/68 O2 Sat by Pulse Oximetry 95 96 94 L 04/14/20 23:00 04/15/20 00:00 04/15/20 01:00 Temperature 98.9 F Pulse Rate Pulse Rate [Right Brachial] 65 66 71 Respiratory Rate 19 33 H 24 Blood Pressure Blood Pressure [Right Arm] 134/61 122/56 127/58 O2 Sat by Pulse Oximetry 94 L 95 100 04/15/20 02:00 04/15/20 03:00 04/15/20 04:00 Temperature 98.1 F Pulse Rate Pulse Rate [Right Brachial] 75 75 69 Respiratory Rate 25 H 12 19 Blood Pressure 129/60 Blood Pressure [Right Arm] 129/60 110/54 136/60 O2 Sat by Pulse Oximetry 98 99 97 04/15/20 04:30 04/15/20 05:00 04/15/20 06:00 Temperature Pulse Rate 75 Pulse Rate [Right Brachial] 73 70 Respiratory Rate 24 18 22 Blood Pressure Blood Pressure [Right Arm] 141/59 135/61 O2 Sat by Pulse Oximetry 94 L 95 98 04/15/20 07:00 04/15/20 08:00 04/15/20 09:00 Temperature 98.6 F Pulse Rate Pulse Rate [Right Brachial] 71 73 60 Respiratory Rate 29 H 26 H 60 H Blood Pressure Blood Pressure [Right Arm] 129/58 120/55 124/61 O2 Sat by Pulse Oximetry 90 L 92 L 94 L 04/15/20 09:40 04/15/20 10:00 04/15/20 11:00 Temperature 98.7 F Pulse Rate 86 Pulse Rate [Right Brachial] 47 L 84 Respiratory Rate 47 H 22 Blood Pressure Blood Pressure [Right Arm] 148/68 146/68 O2 Sat by Pulse Oximetry 96 92 L 92 L 04/15/20 12:00 04/15/20 13:00 04/15/20 13:40 Temperature Pulse Rate 89 Pulse Rate [Right Brachial] 76 93 H Respiratory Rate 26 H 24 Blood Pressure Blood Pressure [Right Arm] 154/67 153/67 O2 Sat by Pulse Oximetry 94 L 97 100 04/15/20 14:00 04/15/20 15:00 04/15/20 16:00 Temperature Pulse Rate Pulse Rate [Right Brachial] 85 80 72 Respiratory Rate 26 H 24 22 Blood Pressure Blood Pressure [Right Arm] 127/64 142/66 134/69 O2 Sat by Pulse Oximetry 97 93 L 93 L 04/15/20 17:00 04/15/20 17:50 04/15/20 18:00 Temperature Pulse Rate 84 Pulse Rate [Right Brachial] 75 79 Respiratory Rate 33 H 22 41 H Blood Pressure Blood Pressure [Right Arm] 138/64 152/68 O2 Sat by Pulse Oximetry 91 L 92 L 90 L 04/15/20 19:00 04/15/20 19:01 04/15/20 19:59 Temperature Pulse Rate 81 78 87 Pulse Rate [Right Brachial] Respiratory Rate 45 H 44 H 35 H Blood Pressure 140/64 Blood Pressure [Right Arm] O2 Sat by Pulse Oximetry 87 L 89 L 87 L 04/15/20 20:01 04/15/20 20:02 04/15/20 21:00 Temperature 97.8 F Pulse Rate 89 75 Pulse Rate [Right Brachial] Respiratory Rate 35 H 42 H Blood Pressure 165/75 142/63 Blood Pressure [Right Arm] O2 Sat by Pulse Oximetry 86 L 91 L 04/15/20 21:29 04/15/20 22:00 04/15/20 23:00 Temperature Pulse Rate 76 79 75 Pulse Rate [Right Brachial] Respiratory Rate 27 H 43 H Blood Pressure 144/65 129/56 Blood Pressure [Right Arm] O2 Sat by Pulse Oximetry 91 L 91 L 90 L 04/16/20 00:00 04/16/20 00:01 04/16/20 01:00 Temperature Pulse Rate 74 80 81 Pulse Rate [Right Brachial] Respiratory Rate 23 43 H 13 Blood Pressure 179/76 Blood Pressure [Right Arm] O2 Sat by Pulse Oximetry 97 94 L 86 L 04/16/20 01:01 04/16/20 02:00 04/16/20 02:01 Temperature Pulse Rate 78 78 80 Pulse Rate [Right Brachial] Respiratory Rate 65 H 39 H 41 H Blood Pressure 148/63 121/58 Blood Pressure [Right Arm] O2 Sat by Pulse Oximetry 87 L 94 L 99 04/16/20 03:00 04/16/20 04:00 04/16/20 05:00 Temperature 98.2 F Pulse Rate 75 79 79 Pulse Rate [Right Brachial] Respiratory Rate 22 29 H 38 H Blood Pressure 138/63 155/71 154/75 Blood Pressure [Right Arm] O2 Sat by Pulse Oximetry 94 L 95 96 04/16/20 05:55 04/16/20 06:00 04/16/20 07:00 Temperature Pulse Rate 70 80 Pulse Rate [Right Brachial] Respiratory Rate 38 H 22 Blood Pressure 166/69 183/79 Blood Pressure [Right Arm] O2 Sat by Pulse Oximetry 89 L 95 91 L 04/16/20 08:00 04/16/20 09:00 04/16/20 09:30 Temperature 98.0 F Pulse Rate 78 86 84 Pulse Rate [Right Brachial] Respiratory Rate 30 H 45 H Blood Pressure 166/73 174/79 Blood Pressure [Right Arm] O2 Sat by Pulse Oximetry 91 L 88 L 89 L 04/16/20 10:00 04/16/20 11:00 04/16/20 12:00 Temperature 97.8 F Pulse Rate 87 87 80 Pulse Rate [Right Brachial] Respiratory Rate 44 H 38 H 24 Blood Pressure 179/80 178/81 177/77 Blood Pressure [Right Arm] O2 Sat by Pulse Oximetry 91 L 92 L 91 L 04/16/20 13:00 04/16/20 13:55 04/16/20 14:00 Temperature Pulse Rate 79 83 90 Pulse Rate [Right Brachial] Respiratory Rate 28 H 43 H Blood Pressure 183/85 188/86 Blood Pressure [Right Arm] O2 Sat by Pulse Oximetry 90 L 90 L 91 L 04/16/20 15:00 04/16/20 16:00 04/16/20 17:00 Temperature 98.0 F Pulse Rate 84 78 89 Pulse Rate [Right Brachial] Respiratory Rate 37 H 34 H 39 H Blood Pressure 175/75 185/81 191/84 Blood Pressure [Right Arm] O2 Sat by Pulse Oximetry 92 L 89 L 91 L 04/16/20 18:00 04/16/20 19:00 04/16/20 20:00 Temperature 98.8 F Pulse Rate 87 90 85 Pulse Rate [Right Brachial] Respiratory Rate 30 H 37 H 55 H Blood Pressure 194/81 Blood Pressure [Right Arm] O2 Sat by Pulse Oximetry 90 L 92 L 90 L 04/16/20 20:45 04/16/20 21:00 04/16/20 21:09 Temperature Pulse Rate 90 90 Pulse Rate [Right Brachial] Respiratory Rate 35 H 39 H 36 H Blood Pressure 173/76 Blood Pressure [Right Arm] O2 Sat by Pulse Oximetry 93 L 93 L 04/16/20 21:12 04/16/20 21:15 04/16/20 22:00 Temperature Pulse Rate 78 80 Pulse Rate [Right Brachial] Respiratory Rate 38 H 25 H 48 H Blood Pressure Blood Pressure [Right Arm] O2 Sat by Pulse Oximetry 90 L 91 L 04/16/20 23:00 04/16/20 23:01 04/16/20 23:05 Temperature Pulse Rate 84 83 89 Pulse Rate [Right Brachial] Respiratory Rate 31 H 30 H 34 H Blood Pressure 176/74 170/72 Blood Pressure [Right Arm] O2 Sat by Pulse Oximetry 87 L 87 L 88 L 04/16/20 23:11 04/16/20 23:15 04/16/20 23:21 Temperature Pulse Rate 76 77 81 Pulse Rate [Right Brachial] Respiratory Rate 5 L 16 16 Blood Pressure 105/52 91/54 88/54 Blood Pressure [Right Arm] O2 Sat by Pulse Oximetry 59 L 88 L 84 L 04/16/20 23:25 04/16/20 23:27 04/16/20 23:30 Temperature Pulse Rate 74 77 85 Pulse Rate [Right Brachial] Respiratory Rate 16 16 16 Blood Pressure 73/41 74/47 107/58 Blood Pressure [Right Arm] O2 Sat by Pulse Oximetry 88 L 89 L 92 L 04/16/20 23:35 04/16/20 23:40 04/16/20 23:44 Temperature Pulse Rate 87 87 92 H Pulse Rate [Right Brachial] Respiratory Rate 16 16 16 Blood Pressure 144/70 182/81 176/84 Blood Pressure [Right Arm] O2 Sat by Pulse Oximetry 93 L 95 96 04/17/20 00:00 04/17/20 00:01 04/17/20 00:30 Temperature 98.6 F Pulse Rate 101 H 102 H 89 Pulse Rate [Right Brachial] Respiratory Rate 16 16 16 Blood Pressure 197/96 158/76 Blood Pressure [Right Arm] O2 Sat by Pulse Oximetry 96 96 95 04/17/20 01:00 Temperature Pulse Rate 95 H Pulse Rate [Right Brachial] Respiratory Rate 16 Blood Pressure 196/92 Blood Pressure [Right Arm] O2 Sat by Pulse Oximetry 95 Labs: Laboratory Last Values WBC 10.6 X10^3/uL (3.6-10.0) H 04/16/20 05:21 RBC 3.87 X10^6/uL (3.5-5.4) 04/16/20 05:21 Hgb 11.5 g/dL (12.0-16.0) L 04/16/20 05:21 Hct 32.9 % (36.0-47.0) L 04/16/20 05:21 MCV 85.2 fL (80.0-100.0) 04/16/20 05:21 MCH 29.8 pg (27.0-34.0) 04/16/20 05:21 MCHC 34.9 g/dL (33.0-35.0) 04/16/20 05:21 RDW 14.9 % (11.6-16.5) 04/16/20 05:21 Plt Count 484 X10^3/uL (150.0-450.0) H 04/16/20 05:21 Plt Count Comment Adequate (ADEQUATE) 04/11/20 05:00 MPV 7.8 fL (7.4-11.0) 04/16/20 05:21 Neut % (Auto) 86.2 % (42.0-75.0) H 04/16/20 05:21 Lymph % (Auto) 6.1 % (21.0-51.0) L 04/16/20 05:21 [place] % (Auto) 3.6 % (0.0-13.0) 04/16/20 05:21 Eos % (Auto) 3.9 % (0.9-2.9) H 04/16/20 05:21 Baso % (Auto) 0.2 % (0.2-1.0) 04/16/20 05:21 Neut # (Auto) 9.1 x10^3/uL (2.2-4.8) H 04/16/20 05:21 Lymph # (Auto) 0.6 X10^3/uL (1.3-2.9) L 04/16/20 05:21 [place] # (Auto) 0.4 x10^3/uL (0.3-0.8) 04/16/20 05:21 Eos # (Auto) 0.4 x10^3/uL (0.0-0.2) H 04/16/20 05:21 Baso # (Auto) 0.0 X10^3/uL (0.0-0.1) 04/16/20 05:21 Absolute Nucleated RBC 0.0 /100WBC 04/16/20 05:21 Total Counted 100 04/11/20 05:00 Neutrophils % (Manual) 90 % (39-76) H 04/11/20 05:00 Band Neutrophils % 5 % (0-10) 04/11/20 05:00 Lymphocytes % (Manual) 3 % (13-43) L 04/11/20 05:00 Monocytes % (Manual) 2 % (4-9) L 04/11/20 05:00 Plt Morphology Comment Normal (NORMAL) 04/11/20 05:00 RBC Morphology Normal (NORMAL) 04/11/20 05:00 Sample Site Rr 04/16/20 23:45 ABG pH 7.310 (7.35-7.45) L 04/16/20 23:45 ABG pCO2 41.0 mmHg (35.0-45.0) 04/16/20 23:45 ABG pO2 55.0 mmHg (80.0-100.0) L 04/16/20 23:45 ABG HCO3 20.6 mmol/L (22-26) L 04/16/20 23:45 ABG O2 Saturation 85.0 % (90-100) L 04/16/20 23:45 ABG Base Excess -5.4 mmol/L (-2.0-2.0) L 06/01/20 23:45 Riccardo Test Pos 04/16/20 23:45 A-a Gradient 607.0 mmHg 04/16/20 23:45 FiO2 100.0 04/16/20 23:45 Blood Gas Comments Pt liz well. [employer] 04/16/20 23:45 Sodium 135 mmol/L (136-145) L 04/16/20 05:21 Corrected Sodium 137 mmol/L (136-145) 04/16/20 05:21 Potassium 3.8 mmol/L (3.5-5.1) 04/16/20 05:21 Chloride 104 mmol/L (98-107) 04/16/20 05:21 Carbon Dioxide 21.0 mmol/L (21-32) 04/16/20 05:21 BUN 11 mg/dL (7-18) 04/16/20 05:21 Creatinine 0.95 mg/dL (0.55-1.02) 04/16/20 05:21 Est GFR (MDRD) Af Amer > 60 (>60) 04/16/20 05:21 Est GFR (MDRD) Non-Af > 60 (>60) 04/16/20 05:21 Glucose 176 mg/dL (65-99) H 04/16/20 05:21 POC Glucose (mg/dL) 145 mg/dL (65-99) H 04/13/20 05:06 Lactic Acid 0.8 mmol/L (0.4-2.0) 04/07/20 14:10 Calcium 7.5 mg/dL (8.5-10.1) L 04/16/20 05:21 Corrected Calcium 9.0 mg/dL (8.5-10.1) 04/13/20 05:04 Magnesium 2.1 mg/dL (1.7-2.9) 04/16/20 05:21 Total Bilirubin 0.50 mg/dL (0.2-1.0) 04/13/20 05:04 AST 37 Units/L (15-37) 04/13/20 05:04 ALT 38 Units/L (12-78) 04/13/20 05:04 Alkaline Phosphatase 131 Units/L (46-116) H 04/13/20 05:04 Lactate Dehydrogenase 662 Units/L (81-234) H 04/07/20 14:10 Troponin I < 0.02 ng/mL (0-1.5) 04/07/20 14:10 C-Reactive Protein 82.10 mg/L (0-3.0) H 04/07/20 14:10 Total Protein 5.5 g/dL (6.4-8.2) L 04/13/20 05:04 Albumin 2.1 g/dL (3.4-5.0) L 04/13/20 05:04 Globulin 3.4 g/dL (2.5-4.5) 04/13/20 05:04 Albumin/Globulin Ratio 0.6 Ratio (1.1-2.1) L 04/13/20 05:04 HCG, Qual Negative <10 mIU/mL 04/07/20 14:10 Specimen Type Catherized urine 04/16/20 21:26 Urine Color Pale yellow (YELLOW) 04/16/20 21: Urine Appearance Clear (CLEAR) 04/16/20 21:26 Urine pH 5.0 (5.0 - 8.0) 04/16/20 21:26 Ur Specific [place] 1.015 (1.000-1.030) 04/16/20 21:26 Urine Protein 3+ (NEGATIVE) 04/16/20 21:26 Urine Glucose (UA) 1+ (NEGATIVE) 04/16/20 21:26 Urine Ketones 3+ (NEGATIVE) 04/16/20 21:26 Urine Occult Blood 2+ (NEGATIVE) 04/16/20 21:26 Urine Nitrite Negative (NEGATIVE) 04/16/20 21: Urine Bilirubin Negative (NEGATIVE) 04/16/20 21:26 Urine Urobilinogen Normal (NORMAL) 04/16/20 21:26 Ur Leukocyte Esterase Negative (NEGATIVE) 04/16/20 21:26 Urine RBC 0-2 /HPF (0-3) 04/16/20 21:26 Urine WBC None seen /HPF (0-5) 04/16/20 21:26 Ur Squamous Epith Cells Negative /HPF (NEGATIVE) 04/16/20 21: Urine Bacteria Negative /HPF (NEGATIVE) 04/16/20 21:26 Ur Culture Indicated? No/not indicated 04/16/20 21:26 SARS-CoV-2 (PCR) Positive (NEGATIVE) A 04/07/20 14:14 Miscellaneous Test Cancelled 04/07/20 14:14 Reason For Visit: WEAK, HEAD, N/V/D Discharge Date Discharge Date: 04/17/20 Discharge Diagnosis All Active Problems (Updated 04/16/20 @ 11:27 by Nehemias Cooper) ARDS (adult respiratory distress syndrome) (Acute) Acute hypoxemic respiratory failure due to COVID-19 (Acute) COVID-19 (Acute) FRANCESCO (acute kidney injury) (Acute) Plan of Treatment: Continue with present treatment and follow up plan. Pt is to keep follow up appointment as instructed and take medications as ordered. Discharge Medications Discharge Medications: No Known Drug Allergies Allergy (Verified 04/07/20 14:00) CONTINUE taking the following medications NK 04/07/20 [History] Discharge Disposition Discharge Disposition: Transfer to [place], [place] Discharge Condition: Critical
== END 2020-04-17 02:15 | disposition short-term general hospital (02) | DRG 208 ==
LOC: ER 13:59 → ICU 15:55
PROVIDERS: ADMIT Family Medicine; ATTEND Family Medicine
DX: E87.6 Hypokalemia; N17.8 Other acute kidney failure; J96.01 Acute respiratory failure with hypoxia; R26.89 Other abnormalities of gait and mobility; U07.1 COVID-19; J12.89 Other viral pneumonia
CPT/HCPCS: 36415; 36600; 51702; 71010; 71045; 80048; 80053; 81001; 82803; 82947; 83605; 83615; 83735; 84132; 84484; 84703; 85025; 86140; 87040; 87635; 93005; 94002; 94003; 94640; 96365; 96374; 97110; 97112; 97162; 97166; 97530; 97535; 99285; A4216; A4222; J0456; J0696; J1650; J1815; J1940; J1956; J2270; J2405; J2543; J2704; J2930; J3262; J3475; J3490; J7030; J7050; J7060